=== PATIENT | female | born 1985 | race Caucasian/White ===

== ENCOUNTER 2017-11-09 19:25 | Emergency (ER) | payer OTHER, SELFPAY ==
[2017-11-09] MEDS ORDERED: MORPHINE 4 MG/ML SYR ONE (19:56)
[2017-11-09] MEDS ORDERED: ONDANSETRON 4 MG/2 ML VIAL ONE (19:57)
[2017-11-09] MEDS ORDERED: NA CHLORIDE 0.9% 1,000 ML ONE (19:57)
[2017-11-09 20:06] LABS: Absolute Lymphocytes (CBC) 1.9 K/uL (0.7-4.9); Absolute Monocytes 1.1 K/uL (0.1-1.3); Absolute Neutrophil 12.6 K/uL (1.8-8.0); Basophils % 0.4 % (0-1.3); Eosinophils % 1.4 % (0-4.4); Hematocrit 41.4 % (36.0-45.0); MCH 30.9 pg (27.0-35.0); MCV 91.6 fL (80-100); MPV 8.2 fL (7.6-11.3); Monocytes % 7.1 % (3.3-12.3); RBC Red Blood Cell Count 4.52 M/uL (3.86-4.86)
[2017-11-09 20:25] LABS: ALT/SGPT 15 U/L (12-78); AST/SGOT 11 U/L (15-37); Albumin 3.8 g/dL (3.4-5.0); Alkaline Phosphatase 71 U/L (45-117); BUN Blood Urea Nitrogen 8 mg/dL (7-18); Bicarbonate 27 mmol/L (21-32); Bilirubin Direct 0.1 mg/dL (0-0.2); Bilirubin Total 0.3 mg/dL (0.2-1.0); Glucose Level 93 mg/dL (74-106); Lipase 74 U/L (73-393); Potassium 3.8 mmol/L (3.5-5.1); Protein, Total 7.7 g/dL (6.4-8.2); Sodium Level 138 mmol/L (136-145)
--- NOTE | 2017-11-09 21:02 | ER ---
Nurse's Notes [facility] Name: Shaan Woods Age: 32 yrs Sex: Female : 1985 Arrival Date: 11/09/2017 Time: 19:26 Bed 5 Private MD: Sheldon Najera Diagnosis: Abdominal and pelvic pain Presentation: 11/09 19:35 Presenting complaint: Patient states: lower abd pain X4 days. last BM yesterday. pt ak1 denies N/V/D. Transition of care: patient was not received from another setting of care. Onset of symptoms is unknown. Risk Assessment: Do you want to hurt yourself or someone else? Patient reports no desire to harm self or others. Initial Sepsis Screen: Does the patient meet any 2 criteria?. Care prior to arrival: None. 19:35 Method Of Arrival: Wheelchair ak1 19:35 Acuity: HASEEB 3 ak1 Triage Assessment: 19:37 General: Appears uncomfortable, Behavior is crying. Pain: Complains of pain in right ak1 lower quadrant and left lower quadrant. 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 - Social history:: Smoking status: Patient uses tobacco products, smokes one pack cigarettes per day. - Ebola Screening: : No symptoms or risks identified at this time. Screenin:48 Abuse screen: Denies threats or abuse. Nutritional screening: No deficits noted. ea Tuberculosis screening: No symptoms or risk factors identified. Fall Risk None identified. Assessment: 19:46 General: Appears uncomfortable, Behavior is restless. Pain: Complains of pain in right ea lower quadrant Pain currently is 10 out of 10 on a pain scale. Quality of pain is described as sharp, Pain began Is continuous. Neuro: Level of Consciousness is awake, alert, obeys commands, Oriented to person, place, time, situation. Cardiovascular: Patient's skin is warm and dry. Respiratory: Airway is patent Respiratory effort is even, unlabored, Respiratory pattern is regular, symmetrical. GI: Abdomen is flat, Bowel sounds present X 4 quads. Abdomen is tender to palpation in right lower quadrant Abd is rigid in right lower quadrant Guarding noted in right lower quadrant. : No signs and/or symptoms were reported regarding the genitourinary system. Derm: Skin is dry, Skin is pale, Skin temperature is warm. 20:45 Reassessment: Pt screaming "I don't want to fucking stay, I know what the fuck is wrong ea with me I have ovarian cysts, get this IV out of my fucking arm" provider notified. 20:55 Reassessment: Provider at bedside pt screaming she wants to go home. Pt verbalized the ea understanding of possible adverse effects due to leaving AMA. AMA form signed. Pt IV discontinued, catheter intact, bleeding controlled, pressure dressing applied pt tolerated well. Pt left ED with significant other. Vital Signs: 19:37 BP 141 / 107; Pulse 121; Resp 20; Temp 98.1; Pulse Ox 100% on R/A; Weight 44.45 kg (R); ak1 Height 4 ft. 11 in. (149.86 cm) (R); Pain 8/10; 20:31 BP 115 / 88; Pulse 110; Resp 18; Pulse Ox 98% ; ea 20:47 BP 109 / 79; Pulse 101; Resp 18; Pulse Ox 100% on R/A; mt 19:37 Body Mass Index 19.79 (44.45 kg, 149.86 cm) ak1 ED Course: 19:26 Patient arrived in ED. al2 19:26 Sheldon Najera MD is Private Physician. al2 19:36 Triage completed. ak1 19:37 Arm band placed on Patient placed in an exam room, on a stretcher, Patient notified of ak1 wait time. 19:38 Todd Gentile MD is Attending Physician. tw4 19:46 Catrachita Nation RN is Primary Nurse. ea 19:47 Inserted saline lock: 22 gauge in right antecubital area, using aseptic technique. mt Blood collected. Administered Medications: 19:49 Drug: morphine 4 mg Route: IVP; Site: right antecubital; ea 19:49 Drug: Zofran 4 mg Route: IVP; Site: right antecubital; ea 19:50 Drug: NS 0.9% 1000 ml Route: IV; Rate: 1 bolus; Site: right antecubital; ea Outcome: 21:04 AMA AMA form signed ea 21:05 Patient left the ED. ea Signatures: Gloria Johnston RN RN Elisa Medina mt, Elena, RN RN ea Love, Todd Thakur MD MD tw4 Corrections: (The following items were deleted from the chart) : 20:45 Reassessment: Provider at bedside pt screaming she wants to go home. Pt ea verbalized the understanding of possible adverse effects due to leaving AMA. AMA form signed. Pt IV discontinued, catheter intact, bleeding controlled, pressure dressing applied pt tolerated well. Pt left ED with significant other. ea
--- NOTE | 2017-11-09 21:02 | EDPHYS ---
Physician Documentation [facility] Name: Shaan Woods Age: 32 yrs Sex: Female : 1985 Arrival Date: 11/09/2017 Time: 19:26 Bed 5 Private MD: Sheldon Najera ED Physician Todd Gentile HPI: 11/09 20:50 This 32 yrs old Female presents to ER via Wheelchair with complaints of tw4 Abdominal Pain. 20:50 The patient presents with abdominal pain right lower quadrant. Onset: The tw4 symptoms/episode began/occurred today. The symptoms do not radiate. Associated signs and symptoms: none. The symptoms are described as sharp. Modifying factors: The symptoms are alleviated by nothing, the symptoms are aggravated by movement, pressure. Severity of pain: At its worst the pain was severe in the emergency department the pain. The patient has not experienced similar symptoms in the past. 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 - Social history:: Smoking status: Patient uses tobacco products, smokes one pack cigarettes per day. - Ebola Screening: : No symptoms or risks identified at this time. ROS: 20:50 Constitutional: Negative for fever, chills, and weight loss, Cardiovascular: Negative tw4 for chest pain, palpitations, and edema, Respiratory: Negative for shortness of breath, cough, wheezing, and pleuritic chest pain, MS/Extremity: Negative for injury and deformity, Skin: Negative for injury, rash, and discoloration, Neuro: Negative for headache, weakness, numbness, tingling, and seizure. 20:50 Abdomen/GI: Positive for Exam: 21:02 Chest/axilla: Normal chest wall appearance and motion. Nontender with no deformity. tw4 No lesions are appreciated. Cardiovascular: Regular rate and rhythm with a normal S1 and S2. No gallops, murmurs, or rubs. Normal PMI, no JVD. No pulse deficits. Respiratory: Lungs have equal breath sounds bilaterally, clear to auscultation and percussion. No rales, rhonchi or wheezes noted. No increased work of breathing, no retractions or nasal flaring. 21:02 MS/ Extremity: Pulses equal, no cyanosis. Neurovascular intact. Full, normal range of motion. Neuro: Awake and alert, GCS 15, oriented to person, place, time, and situation. Cranial nerves II-XII grossly intact. Motor strength 5/5 in all extremities. Sensory grossly intact. Cerebellar exam normal. Normal gait. 21:02 Constitutional: The patient appears in obvious distress, moderately distressed. 21:02 Abdomen/GI: Inspection: abdomen appears normal, Bowel sounds: normal, Palpation: moderate abdominal tenderness, in the right lower quadrant. Vital Signs: 19:37 BP 141 / 107; Pulse 121; Resp 20; Temp 98.1; Pulse Ox 100% on R/A; Weight 44.45 kg (R); ak1 Height 4 ft. 11 in. (149.86 cm) (R); Pain 8/10; 20:31 BP 115 / 88; Pulse 110; Resp 18; Pulse Ox 98% ; ea 20:47 BP 109 / 79; Pulse 101; Resp 18; Pulse Ox 100% on R/A; mt 19:37 Body Mass Index 19.79 (44.45 kg, 149.86 cm) ak1 MDM: 19:39 Patient medically screened. tw4 21:02 Differential diagnosis: appendicitis, Ovarian Torsion, Tubal Ovarian Abcess, tw4 Ureterolithiasis, urinary tract infection. Data reviewed: vital signs, nurses notes. Data interpreted: Pulse oximetry: Interpretation: normal. Counseling: I had a detailed discussion with the patient and/or guardian regarding: the historical points, exam findings, and any diagnostic results supporting the discharge/admit diagnosis, lab results. Medication response: morphine relieved the patient's pain. Symptoms have resolved. Response to treatment: the patient's symptoms have markedly improved after treatment. ED course: Pt received Morphine for pain and after only waited 40 min in the ED stated "take this IV out, you all aren't doing anything for me". Pt in my opinion displaying drug seeking behavior. Pt offered no other rationale for leaving. Risks of leaving explained to patient, AMA form signed. 11/09 19:41 Order name: Basic Metabolic Panel tw4 11/09 19:41 Order name: CBC with Diff tw4 11/09 19:41 Order name: Creatinine for Radiology tw4 11/09 19:41 Order name: Hepatic Function tw4 11/09 19:41 Order name: Lipase tw4 11/09 19:41 Order name: Basic Metabolic Panel EDMS 11/09 19:41 Order name: CBC with Automated Diff EDMS 11/09 19:41 Order name: Liver (Hepatic) Function EDMS 11/09 19:42 Order name: Lipase EDMS 11/09 19:41 Order name: IV Saline Lock; Complete Time: 19:46 tw4 11/09 19:41 Order name: Labs collected and sent; Complete Time: 19:46 tw4 Administered Medications: 19:49 Drug: morphine 4 mg Route: IVP; Site: right antecubital; ea 19:49 Drug: Zofran 4 mg Route: IVP; Site: right antecubital; ea 19:50 Drug: NS 0.9% 1000 ml Route: IV; Rate: 1 bolus; Site: right antecubital; ea Disposition: 11/09/17 21:01 Patient has left against medical advice. Impression: Abdominal and pelvic pain. - Patients states they are going to Home. - Condition is Stable. - Discharge Instructions: Abdominal Pain, Adult. Follow up: Private Physician; When: Upon discharge from the Emergency Department; Reason: If symptoms return. Follow up: Emergency Department; Reason: If symptoms return. - Problem is an ongoing problem. - Symptoms are unchanged. Signatures: Dispatcher [employer] [facility] Gloria Johnston RN RN ak1 Catrachita Nation RN RN ea Wadley, Terrence, MD MD tw4 Corrections: (The following items were deleted from the chart) 21:05 21:01 11/09/2017 21:01 Patients has left against medical advice. Impression: Abdominal ea and pelvic pain. Patient states they are going to Home. Condition is Stable. Follow up: Private Physician; When: Upon discharge from the Emergency Department; Reason: If symptoms return. Follow up: Emergency Department; Reason: If symptoms return. Problem is an ongoing problem. Symptoms are unchanged. tw4
[2017-11-09 21:09] VITALS: TEMP 98.1
[2017-11-09 21:12] VITALS: BP 109/79; O2SAT 100
== END 2017-11-09 21:05 | disposition left against medical advice (07) ==
LOC: ER 19:25
DX: R10.2 Pelvic and perineal pain (principal); F17.210 Nicotine dependence, cigarettes, uncomplicated; Z88.0 Allergy status to penicillin; Z88.1 Allergy status to other antibiotic agents; Z88.5 Allergy status to narcotic agent
CPT/HCPCS: 36415; 80048; 80076; 83690; 85025; 96374; 96375; 99283; J2405; J7030

== ENCOUNTER 2020-08-23 16:33 | Emergency (ER) | payer SELFPAY ==
--- OUTSIDE RECORDS SUMMARY | 2020-08-23 16:36 | XMS REPORT | Continuity of Care Document ---
:1985 Author Organization [facility] t Address [address] [place] [address] Dr. Parham [address] [place] [id number] Care Team Providers Name Role Phone Unavailable Unavailable Unavailable Problems This patient has no known problems. Allergies, Adverse Reactions, Alerts This patient has no known allergies or adverse reactions. Medications This patient has no known medications. Procedures This patient has no known procedures. Results This patient has no known results.
--- NOTE | 2020-08-23 18:27 | EDPHYS ---
Physician Documentation [facility] Name: Shaan Woods Age: 34 yrs Sex: Female : 1985 Arrival Date: 08/23/2020 Time: 16:35 Bed 24 Private MD: ED Physician Nando Miranda HPI: 08/23 18:43 This 34 yrs old Female presents to ER via Ambulatory with complaints of kb Rectal Pain. 18:43 The patient presents to the emergency department with pain in the rectal area, that is kb moderate. Onset: The symptoms/episode began/occurred 4 day(s) ago. Context: the patient "feels like another fistula". Modifying factors: The symptoms are alleviated by nothing, The symptoms are aggravated by nothing. Associate signs and symptoms: The patient has no apparent associated signs or symptoms. The patient has not experienced similar symptoms in the past. The patient has not recently seen a physician. Historical: - Allergies: 16:57 PENICILLINS; ll1 16:57 hydromorphone HCl; ll1 16:57 Bactrim; ll1 - PMHx: 16:57 Anxiety; ll1 - PSHx: 16:57 fistula repair; ll1 - Immunization history:: Client reports having NOT received the Covid vaccine. Flu vaccine is not up to date. - Social history:: Smoking status: Patient reports the use of cigarette tobacco products, smokes one-half pack cigarettes per day, Reported history of juuling and/or vaping. ROS: 18:42 Constitutional: Negative for fever, chills, and weight loss. kb 18:42 Abdomen/GI: Positive for rectal pain. 18:42 All other systems are negative. Exam: 18:42 Constitutional: This is a well developed, well nourished patient who is awake, alert, kb and in no acute distress. Head/Face: Normocephalic, atraumatic. ENT: Moist Mucous membranes Respiratory: Respirations even and unlabored. No increased work of breathing, no retractions or nasal flaring. Skin: Warm, dry with normal turgor. Normal color. MS/ Extremity: Pulses equal, no cyanosis. Neurovascular intact. Full, normal range of motion. Neuro: Awake and alert, GCS 15, oriented to person, place, time, and situation. Moves all extremities. Normal gait. Psych: Awake, alert, with orientation to person, place and time. Behavior, mood, and affect are within normal limits. 18:42 Abdomen/GI: Rectal exam: tenderness, that is moderate, the spouse/significant other acts as a education dean. Vital Signs: 16:56 BP 119 / 84; Pulse 97; Resp 17; Temp 98.1; Pulse Ox 100% ; Height 4 ft. 11 in. (149.86 ll1 cm); Pain 5/10; MDM: 18:05 Patient medically screened. kb 18:23 Data reviewed: vital signs, nurses notes. Data interpreted: Pulse oximetry: on room air kb is 100 %. Interpretation: normal. 18:23 ED course: PT decided she didn't want to stay for the workup. . kb 08/23 18:18 Order name: IV Saline Lock kb 08/23 18:18 Order name: Labs collected and sent kb Administered Medications: No medications were administered Disposition: 08/24 06:58 Co-signature as Attending Physician, Nando Miranda MD. rn Disposition Summary: 08/23/20 18:26 Left Against Medical Advice Location: Home kb Problem: new kb Symptoms: are unchanged kb Condition: Stable kb Diagnosis - Rectal pain kb Followup: kb - With: Emergency Department - When: As needed - Reason: Worsening of condition Followup: kb - With: Private Physician - When: 2 - 3 days - Reason: Recheck today's complaints, Continuance of care, Re-evaluation by your physician Signatures: Dispatcher [employer] Aislinn Chakraborty, DIRECTOR PRISON-C DIRECTOR PRISON-Ckb Nando Miranda MD MD rn Lewis, Lynsay RN RN ll1
--- NOTE | 2020-08-23 18:27 | ER ---
Nurse's Notes [facility] Name: Shaan Woods Age: 34 yrs Sex: Female : 1985 Arrival Date: 08/23/2020 Time: 16:35 Bed 24 Private MD: Diagnosis: Rectal pain Presentation: 08/23 16:56 Chief complaint: Patient states: Severe rectal pain for 4 days. History of fistula's, ll1 states it feels the same. No trauma or falls. Denies blood in stools. No fever. Coronavirus screen: Client denies travel out of the [place] in the last 14 days. At this time, the client does not indicate any symptoms associated with coronavirus-19. Ebola Screen: Patient denies travel to an Ebola-affected area in the 21 days before illness onset. Initial Sepsis Screen: Does the patient meet any 2 criteria? HR > 90 bpm. No. Patient's initial sepsis screen is negative. Does the patient have a suspected source of infection? Yes: Other: RECTAL PAIN/R/O FISTULA. Risk Assessment: Do you want to hurt yourself or someone else? Patient reports no desire to harm self or others. Onset of symptoms was August 19, 2020. 16:56 Method Of Arrival: Ambulatory ll1 16:56 Acuity: HASEEB 3 ll1 Historical: - Allergies: 16:57 PENICILLINS; ll1 16:57 hydromorphone HCl; ll1 16:57 Bactrim; ll1 - PMHx: 16:57 Anxiety; ll1 - PSHx: 16:57 fistula repair; ll1 - Immunization history:: Client reports having NOT received the Covid vaccine. Flu vaccine is not up to date. - Social history:: Smoking status: Patient reports the use of cigarette tobacco products, smokes one-half pack cigarettes per day, Reported history of juuling and/or vaping. Screenin:17 Abuse screen: Denies threats or abuse. Denies injuries from another. Nutritional zb screening: No deficits noted. Tuberculosis screening: No symptoms or risk factors identified. Fall Risk None identified. Assessment: 18:18 Reassessment: ECP at bedside discussing care with patient. zb 18:26 Reassessment: assessment note completed. patient states she wanted to leave AMA. Form zb signed. Vital Signs: 16:56 BP 119 / 84; Pulse 97; Resp 17; Temp 98.1; Pulse Ox 100% ; Height 4 ft. 11 in. (149.86 ll1 cm); Pain 5/10; ED Course: 16:35 Patient arrived in ED. mr 16:57 Triage completed. ll1 16:58 Arm band placed on. ll1 18:02 Jordyn August RN is Primary Nurse. zb 18:03 Aislinn Messina FNP-C is [facility]. kb 18:03 Nando Miranda MD is Attending Physician. kb Administered Medications: No medications were administered Outcome: 18:27 AMA AMA form signed zb 18:27 Condition: stable 18:27 Patient left the ED. zb Signatures: Aislinn Messina FNP-C FNP-Ckb RiveraMaggie mr RouseJamaal, RN RN 1 Jordyn August RN RN zb
[2020-08-23 18:34] VITALS: BP 119/84; TEMP 98.1; O2SAT 100
== END 2020-08-23 18:27 | disposition left against medical advice (07) ==
LOC: ER 16:33
DX: K62.89 Other specified diseases of anus and rectum (principal); F17.210 Nicotine dependence, cigarettes, uncomplicated; Z88.0 Allergy status to penicillin; Z88.1 Allergy status to other antibiotic agents; Z88.5 Allergy status to narcotic agent
CPT/HCPCS: 99281

== ENCOUNTER 2020-08-24 17:52 | Emergency (ER) | payer SELFPAY ==
--- OUTSIDE RECORDS SUMMARY | 2020-08-24 17:54 | XMS REPORT | Continuity of Care Document ---
:1985 Author Organization [facility] t Address [address] [place] [address] Dr. Parham [address] [place] [id number] Care Team Providers Name Role Phone Unavailable Unavailable Unavailable Problems This patient has no known problems. Allergies, Adverse Reactions, Alerts This patient has no known allergies or adverse reactions. Medications This patient has no known medications. Procedures This patient has no known procedures. Results This patient has no known results.
[2020-08-24 18:38] LABS: Absolute Lymphocytes (CBC) 2.3 K/uL (0.7-4.9); Basophils % 0.7 % (0-1.3); Hematocrit 37.7 % (36.0-45.0); Lymphocytes % 23.8 % (15.3-44.8); MPV 8.1 fL (7.6-11.3)
[2020-08-24] MEDS ORDERED: MEPERIDINE HCL 25 MG/ML SYR ONE ×2 (18:40→20:07)
[2020-08-24] MEDS ORDERED: ONDANSETRON 4 MG/2 ML VIAL ONE (18:40)
[2020-08-24 18:42] LABS: Urine Blood 3+ (Negative); Urine Glucose Negative (Negative); Urine Protein Negative (Negative)
[2020-08-24 18:54] LABS: ALT/SGPT 20 U/L (12-78); AST/SGOT 16 U/L (15-37); Albumin 3.7 g/dL (3.4-5.0); Alkaline Phosphatase 71 U/L (45-117); BUN Blood Urea Nitrogen 11 mg/dL (7-18); Bicarbonate 27 mmol/L (21-32); Bilirubin Direct < 0.1 mg/dL (0-0.2); Bilirubin Total 0.2 mg/dL (0.2-1.0); Glucose Level 86 mg/dL (74-106); Lipase 78 U/L (73-393); Potassium 3.7 mmol/L (3.5-5.1); Protein, Total 7.1 g/dL (6.4-8.2); Sodium Level 142 mmol/L (136-145)
--- NOTE | 2020-08-24 19:09 | RAD REPORT ---
EXAM DESCRIPTION: CT - Stone Protocol - 08/24/2020 6:46 pm CLINICAL HISTORY: Flank pain. urinary frequency;Abd pain COMPARISON: Stone Protocol dated 12/16/2015 TECHNIQUE: Axial images were obtained without oral or IV contrast. Lack of contrast limits solid org an and vascular assessment. The [id number] spans the entirety of the system partially obscuring uppermost abdomen and lung bases. Coronal reformatted images were obtained and reviewed. All CT scans are performed using dose optimization technique as appropriate and may include automated exposure control or mA/KV adjustment according to patient size. FINDINGS: The lower lung garcia are clear. Imaged portions of the liver and spleen show no suspicious findings on non-contrast imaging. The panc reas and adrenal glands are normal. No pathologic lymphadenopathy in the abdomen or pelvis. 2 mm stone is present left UVJ without significant hydronephrosis. Additional bilateral punctate jones ceal calculi in both kidneys. No bowel obstruction, free air, free fluid or abscess. Normal appendix noted. No significant bony abnormality. IMPRESSION: 2 mm stone left UVJ without significant hydronephrosis. Punctate bilateral caliceal nephrolithiasis.
[2020-08-24 19:27] LABS: Urine Bacteria <20 /HPF (<20); Urine RBC >50 /HPF (NONE SEEN)
--- NOTE | 2020-08-24 19:42 | EDPHYS ---
Physician Documentation [facility] Name: Shaan Woods Age: 34 yrs Sex: Female : 1985 Arrival Date: 08/24/2020 Time: 17:52 Bed 2 Private MD: ED Physician Cali Roger HPI: 08/24 18:26 This 34 yrs old Female presents to ER via Ambulatory with complaints of Pain rn With Urination, Blood In Urine. 18:26 The patient presents with abdominal pain in the lower abdomen. Onset: The rn symptoms/episode began/occurred last night. The symptoms do not radiate. Associated signs and symptoms: Pertinent positives: dysuria, hematuria, Pertinent negatives: blood in stools, vaginal discharge, vomiting blood. The symptoms are described as sharp, stabbing. Modifying factors: The symptoms are alleviated by nothing, the symptoms are aggravated by nothing. Severity of pain: At its worst the pain was moderate in the emergency department the pain is unchanged. The patient has not experienced similar symptoms in the past. The patient has been recently seen at the [facility] Emergency Department. Seen here yesterday for issues with chronic rectal fistula and rectal pain, left after being seen for unclear reason, back today for another reason, states having lower abd pain, dysuria, increased frequency, and feels similar to previous kidney stones in past. No fever. No trauma. . Historical: - Allergies: 18:01 Bactrim; ll1 18:01 hydromorphone HCl; ll1 18:01 PENICILLINS; ll1 - PMHx: 18:01 Anxiety; ll1 - PSHx: 18:01 fistula repair; ll1 - Immunization history:: Flu vaccine is not up to date. - Social history:: Smoking status: Patient reports the use of cigarette tobacco products, smokes one pack cigarettes per day. - Family history:: not pertinent. - Hospitalizations: : No recent hospitalization is reported. ROS: 18:26 Constitutional: Negative for fever, chills, and weight loss, Eyes: Negative for injury, rn pain, redness, and discharge, ENT: Negative for injury, pain, and discharge, Neck: Negative for injury, pain, and swelling, Cardiovascular: Negative for chest pain, palpitations, and edema, Respiratory: Negative for shortness of breath, cough, wheezing, and pleuritic chest pain, Abdomen/GI: Negative for vomiting, diarrhea, and constipation, Back: Negative for injury and pain, : Negative for injury, bleeding, discharge, and swelling, MS/Extremity: Negative for injury and deformity, Skin: Negative for injury, rash, and discoloration, Neuro: Negative for headache, weakness, numbness, tingling, and seizure. Exam: 18:26 Constitutional: This is a well developed, well nourished patient who is awake, alert, rn appears uncomfortable Head/Face: Normocephalic, atraumatic. Eyes: Periorbital areas with no swelling, redness, or edema. ENT: Dry MM Cardiovascular: Tachycardic, regular. No pulse deficits. Respiratory: No increased work of breathing, no retractions or nasal flaring. Abdomen/GI: soft, + suprapubic tenderness, no rebound Back: No spinal tenderness. No costovertebral tenderness. Full range of motion. Skin: Warm, dry MS/ Extremity: Pulses equal, no cyanosis. Neuro: Awake and alert, GCS 15 Vital Signs: 18:00 BP 149 / 78; Pulse 129; Resp 18; Temp 97.9; Pulse Ox 98% ; Weight 45.36 kg; Height 4 ll1 ft. 11 in. (149.86 cm); Pain 10/10; 19:35 BP 101 / 61; Pulse 108; Resp 18; Pulse Ox 99% ; ea 18:00 Body Mass Index 20.20 (45.36 kg, 149.86 cm) ll1 MDM: 18:11 Patient medically screened. rn 19:36 Data reviewed: vital signs, nurses notes, lab test result(s), radiologic studies, CT pkl scan. ED course: Discussed lab and CT scan result with patient. Advised to follow up with Urologist in 2 to 3 days. Patient understood instructions. 08/24 18:16 Order name: Basic Metabolic Panel; Complete Time: 18:54 rn 08/24 18:16 Order name: CBC with Diff; Complete Time: 19:06 rn 08/24 18:16 Order name: Hepatic Function; Complete Time: 18:54 rn 08/24 18:16 Order name: Lipase; Complete Time: 18:54 rn 08/24 18:16 Order name: Urine Microscopic Only; Complete Time: 19:34 rn 08/24 18:42 Order name: Urine Dipstick-Ancillary; Complete Time: 18:46 EDWA 08/24 18:16 Order name: IV Saline Lock; Complete Time: 18:42 rn 08/24 18:16 Order name: Labs collected and sent; Complete Time: 18:42 rn 08/24 18:16 Order name: CT Stone Protocol; Complete Time: 19:34 rn 08/24 19:27 Order name: Urine Culture EDWA 08/24 18:16 Order name: Urine Dipstick-Ancillary (obtain specimen); Complete Time: 18:42 rn 08/24 18:16 Order name: Urine Test (obtain specimen); Complete Time: 18:42 rn 08/24 18:16 Order name: Bladder Scanner; Complete Time: 18:42 rn Administered Medications: 18:25 Drug: Zofran (Ondansetron) 4 mg Route: IVP; Site: right wrist; sv 18:55 Follow up: Response: No adverse reaction sv 18:27 Drug: Demerol (meperidine) 25 mg {Note: rass3.} Route: IVP; Site: right wrist; sv 18:55 Follow up: Response: No adverse reaction; RASS: Agitated (+2) sv 19:48 Drug: Cipro (ciprofloxacin) 500 mg Route: PO; ea 19:53 Follow up: Response: Medication administered at discharge. ea 19:48 Drug: Demerol (meperidine) 25 mg Route: IVP; Site: right wrist; ea 19:53 Follow up: Response: Medication administered at discharge. ea Disposition Summary: 08/24/20 19:40 Discharge Ordered Location: Home pkl Problem: new pkl Symptoms: are unchanged pkl Condition: Stable pkl Diagnosis - 2 mm stone left UVJ with no significant hydronephrosis. Urinary tract pkl infection Followup: pkl - With: Abimael Vargas MD - When: 2 - 3 days - Reason: Re-evaluation by your physician Discharge Instructions: - Discharge Summary Sheet pkl Forms: - Medication Reconciliation Form pkl - Thank You Letter pkl - Antibiotic Education pkl - Prescription Opioid Use pkl Prescriptions: - Ultram 50 mg Oral Tablet - take 1 tablet by ORAL route every 6 hours As needed; 12 tablet; Refills: 0, pkl Product Selection Permitted - Cipro 500 mg Oral Tablet - take 1 tablet by ORAL route every 12 hours for 7 days; 14 tablet; Refills: 0, pkl Product Selection Permitted Signatures: Dispatcher [employer] Kiara Ruiz, RN Cali Shannon MD MD pkNando López MD MD rn Antunez, Elena RN Jamaal Rivas ea, RN RN ll1
--- NOTE | 2020-08-24 19:42 | ER ---
Nurse's Notes [facility] Name: Shaan Woods Age: 34 yrs Sex: Female : 1985 Arrival Date: 08/24/2020 Time: 17:52 Bed 2 Private MD: Diagnosis: 2 mm stone left UVJ with no significant hydronephrosis. Urinary tract infection Presentation: 08/24 18:00 Chief complaint: Patient states: Severe pelvic pain and unable to urinate well since ll1 last night. Just dribbling and dysuria. Was here yesterday for rectal pain, but left without being seen (wait too long). States her rectum still hurts. No fever. Coronavirus screen: Client denies travel out of the [place] in the last 14 days. At this time, the client does not indicate any symptoms associated with coronavirus-19. Ebola Screen: Patient denies travel to an Ebola-affected area in the 21 days before illness onset. Initial Sepsis Screen: Does the patient meet any 2 criteria? HR > 90 bpm. No. Patient's initial sepsis screen is negative. Does the patient have a suspected source of infection? Yes: Dysuria/Frequency/Urgency/UTI. Risk Assessment: Do you want to hurt yourself or someone else? Patient reports no desire to harm self or others. Onset of symptoms was August 23, 2020. 18:00 Method Of Arrival: Ambulatory ll1 18:00 Acuity: HASEEB 2 ll1 Historical: - Allergies: 18:01 Bactrim; ll1 18:01 hydromorphone HCl; ll1 18:01 PENICILLINS; ll1 - PMHx: 18:01 Anxiety; ll1 - PSHx: 18:01 fistula repair; ll1 - Immunization history:: Flu vaccine is not up to date. - Social history:: Smoking status: Patient reports the use of cigarette tobacco products, smokes one pack cigarettes per day. - Family history:: not pertinent. - Hospitalizations: : No recent hospitalization is reported. Screenin:07 Abuse screen: Denies threats or abuse. Denies injuries from another. Nutritional sv screening: No deficits noted. Tuberculosis screening: No symptoms or risk factors identified. Fall Risk None identified. Assessment: 18:10 General: Appears in no apparent distress. uncomfortable, slender, Behavior is sv cooperative, restless. Pain: Complains of pain in suprapubic area and left lower quadrant Pain currently is 10 out of 10 on a pain scale. Quality of pain is described as sharp, Pain began 1 day ago. Is continuous, Noted to be grimacing, restless. Neuro: Level of Consciousness is awake, alert, obeys commands, Oriented to person, place, time, situation, Gait is steady. Respiratory: Respiratory effort is even, unlabored, Respiratory pattern is regular, symmetrical. : Reports urgency, since last night. Derm: Skin is pink, warm \T\ dry. 19:26 Reassessment: Patient and/or family updated on plan of care and expected duration. Pain ea level reassessed. Patient is alert, oriented x 3, equal unlabored respirations, skin warm/dry/pink. 19:52 Reassessment: Patient and/or family updated on plan of care and expected duration. Pain ea level reassessed. Patient is alert, oriented x 3, equal unlabored respirations, skin warm/dry/pink. Discharge instruction given to patient verbalized the understanding of instruction. Pt left ED ambulatory accompanied by family pt tolerating well. Vital Signs: 18:00 BP 149 / 78; Pulse 129; Resp 18; Temp 97.9; Pulse Ox 98% ; Weight 45.36 kg; Height 4 ll1 ft. 11 in. (149.86 cm); Pain 10/10; 19:35 BP 101 / 61; Pulse 108; Resp 18; Pulse Ox 99% ; ea 18:00 Body Mass Index 20.20 (45.36 kg, 149.86 cm) ll1 ED Course: 17:52 Patient arrived in ED. ds1 18:01 Triage completed. ll1 18:01 Arm band placed on. ll1 18:05 Kiara Zambrano, [place] is Primary Nurse. sv 18:07 Patient has correct armband on for positive identification. Bed in low position. Call sv light in reach. Door closed. Head of bed elevated. 18:11 Nando Miranda MD is Attending Physician. rn 18:15 Missed attempt(s): 20 gauge in right antecubital area. Bleeding controlled, band aid sv applied, catheter tip intact. 18:20 Inserted saline lock: 22 gauge in right wrist, using aseptic technique. ,using aseptic sv technique. diffusics Blood collected. 18:25 Bladder scan completed. 28 mls. sv 18:43 Urine collected: clean catch specimen. sv 18:45 CT Stone Protocol In Process Unspecified. EDMS 19:03 Attending Physician role handed off by Nando Miranda MD pkl 19:03 Cali Roger MD is Attending Physician. pkl 19:03 Primary Nurse role handed off by Kiara Zambrano RN sv 19:08 Report given to Catrachita TOLEDO and Galo TOLEDO. sv 19:15 Catrachita Nation RN is Primary Nurse. ea 19:38 Abimael Vargas MD is Referral Physician. pkl Administered Medications: 18:25 Drug: Zofran (Ondansetron) 4 mg Route: IVP; Site: right wrist; sv 18:55 Follow up: Response: No adverse reaction sv 18:27 Drug: Demerol (meperidine) 25 mg {Note: rass3.} Route: IVP; Site: right wrist; sv 18:55 Follow up: Response: No adverse reaction; RASS: Agitated (+2) sv 19:48 Drug: Cipro (ciprofloxacin) 500 mg Route: PO; ea 19:53 Follow up: Response: Medication administered at discharge. ea 19:48 Drug: Demerol (meperidine) 25 mg Route: IVP; Site: right wrist; ea 19:53 Follow up: Response: Medication administered at discharge. ea Outcome: 19:40 Discharge ordered by . pkl 20:01 Patient left the ED. ea Signatures: Dispatcher [employer] EDMS Kiara Zambrano RN RN sv Lam, Pin, MD MD pk Yanique Helms ds1 Nando Miranda MD MD rn Antunez, Elena, RN RN ea Lewis, Lynsay, RN RN ll1 Corrections: (The following items were deleted from the chart) 18:04 18:00 Chief complaint: Patient states: Severe pelvic pain and unable to urinate well ll1 since last night. Was here yesterday for similar problems. No fever. ll1
[2020-08-24] MEDS ORDERED: CIPROFLOXACIN HCL 500 MG TAB ONE (20:07)
[2020-08-24 20:09] VITALS: TEMP 97.9
[2020-08-24 20:10] VITALS: BP 101/61; O2SAT 99
== END 2020-08-24 20:01 | disposition home or self-care (01) ==
LOC: ER 17:52
DX: N20.9 Urinary calculus, unspecified (principal); N39.0 Urinary tract infection, site not specified; R31.9 Hematuria, unspecified; F17.210 Nicotine dependence, cigarettes, uncomplicated; Z88.0 Allergy status to penicillin; Z88.1 Allergy status to other antibiotic agents; Z88.5 Allergy status to narcotic agent
CPT/HCPCS: 36415; 74176; 76377; 80048; 80076; 81003; 81015; 83690; 85025; 87086; 87088; 96374; 96375; 99284; J2175; J2405

== ENCOUNTER 2020-09-02 15:43 | Emergency (ER) | payer SELFPAY ==
--- OUTSIDE RECORDS SUMMARY | 2020-09-02 15:46 | XMS REPORT | Continuity of Care Document ---
:1985 Author Organization [facility] t Address [address] [place] [address] Dr. Parham [address] [place] [id number] Care Team Providers Name Role Phone Unavailable Unavailable Unavailable Problems This patient has no known problems. Allergies, Adverse Reactions, Alerts This patient has no known allergies or adverse reactions. Medications This patient has no known medications. Procedures This patient has no known procedures. Results This patient has no known results.
[2020-09-02 16:25] LABS: Urine Blood 3+ (Negative); Urine Glucose Negative (Negative); Urine Protein Trace (Negative); Urine Specific Gravity >=1.030 (1.005-1.030)
[2020-09-02 16:34] LABS: Urine Specific Gravity/Preg >1.030 (1.005-1.030)
[2020-09-02] MEDS ORDERED: FENTANYL CITR 100 MCG/2 ML ONE (18:43)
[2020-09-02] MEDS ORDERED: NA CHLORIDE 0.9% 1,000 ML ONE (18:43)
[2020-09-02] MEDS ORDERED: ONDANSETRON 4 MG/2 ML VIAL ONE (18:43)
--- NOTE | 2020-09-02 19:01 | RAD REPORT ---
EXAM DESCRIPTION: CT - Stone Protocol - 09/02/2020 6:49 pm CLINICAL HISTORY: Flank pain. right sided abdominal pain COMPARISON: Stone Protocol dated 08/24/2020 TECHNIQUE: Axial images were obtained without oral or IV contrast. Lack of contrast limits solid org an and vascular assessment. The [id number] spans the entirety of the system partially obscuring uppermost abdomen and lung bases. Coronal reformatted images were obtained and reviewed. All CT scans are performed using dose optimization technique as appropriate and may include automated exposure control or mA/KV adjustment according to patient size. FINDINGS: The lower lung garcia are clear. Imaged portions of the liver and spleen show no suspicious findings on non-contrast imaging. The panc reas and adrenal glands are normal. No pathologic lymphadenopathy in the abdomen or pelvis. 3 mm stone is present of the right UVJ resulting in mild right hydronephrosis and hydroureter. Additi onal stones are present in the calices of both kidneys, the largest on the right measuring 3 mm and t he largest on the left inferiorly measuring 4 mm. No bowel obstruction, free air, free fluid or abscess. Normal appendix noted. No significant bony abnormality. IMPRESSION: 3 mm stone is present at the right UVJ resulting in mild right hydronephrosis. Additional bilateral nephrolithiasis is also noted.
[2020-09-02 19:08] LABS: Absolute Lymphocytes (CBC) 2.1 K/uL (0.7-4.9); Basophils % 0.5 % (0-1.3); Hematocrit 37.2 % (36.0-45.0); Lymphocytes % 16.6 % (15.3-44.8); MPV 7.9 fL (7.6-11.3); RBC Red Blood Cell Count 4.15 M/uL (3.86-4.86)
[2020-09-02 19:18] LABS: ALT/SGPT 17 U/L (12-78); AST/SGOT 12 U/L (15-37); Albumin 3.9 g/dL (3.4-5.0); Alkaline Phosphatase 54 U/L (45-117); BUN Blood Urea Nitrogen 11 mg/dL (7-18); Bicarbonate 23 mmol/L (21-32); Bilirubin Direct 0.2 mg/dL (0-0.2); Bilirubin Total 0.6 mg/dL (0.2-1.0); Glucose Level 87 mg/dL (74-106); Lipase 63 U/L (73-393); Sodium Level 141 mmol/L (136-145)
[2020-09-02] MEDS ORDERED: KETOROLAC 30 MG/ML INJ ONE (19:42)
--- NOTE | 2020-09-02 20:52 | ER ---
Nurse's Notes [facility] Name: Shaan Woods Age: 34 yrs Sex: Female : 1985 Arrival Date: 09/02/2020 Time: 15:44 Bed 4 Private MD: Diagnosis: Calculus of ureter Presentation: 09/02 16:03 Chief complaint: Patient states: Abdominal pain and difficulty urinating starting 09/01. kg Vomiting starting 09/02. Pt stated, "It feels like a kidney stone, I've had them before.". Coronavirus screen: Client denies travel out of the [place] in the last 14 days. At this time, unable to obtain information related to travel outside the [place] At this time, the client does not indicate any symptoms associated with coronavirus-19. Ebola Screen: Patient negative for fever greater than or equal to 101.5 degrees Fahrenheit, and additional compatible Ebola Virus Disease symptoms Patient denies exposure to infectious person. Patient denies travel to an Ebola-affected area in the 21 days before illness onset. Initial Sepsis Screen: Does the patient meet any 2 criteria? No. Patient's initial sepsis screen is negative. Does the patient have a suspected source of infection? No. Patient's initial sepsis screen is negative. Risk Assessment: Do you want to hurt yourself or someone else? Patient reports no desire to harm self or others. Onset of symptoms was September 01, 2020. 16:03 Method Of Arrival: Ambulatory kg 16:03 Acuity: HASEEB 3 kg Triage Assessment: 16:06 General: Appears uncomfortable, Behavior is calm, cooperative, appropriate for age, kg restless. Pain: Complains of pain in right lower quadrant Pain radiates to Right flank, right back Pain currently is 9 out of 10 on a pain scale. at worst was 9 out of 10 on a pain scale. level that patient reports is acceptable is 5 out of 10 on a pain scale. Quality of pain is described as throbbing. GI: Reports nausea, vomiting. : Reports inability to void, since 09/01. 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 - Social history:: Smoking status: Patient reports the use of cigarette tobacco products, smokes one pack cigarettes per day. Screenin:10 Abuse screen: Denies threats or abuse. Denies injuries from another. Nutritional kg screening: No deficits noted. Tuberculosis screening: No symptoms or risk factors identified. Fall Risk None identified. Assessment: 18:30 General: Appears in no apparent distress. uncomfortable, slender, Behavior is sv cooperative, appropriate for age, restless. Pain: Complains of pain in right lower quadrant Pain currently is 9 out of 10 on a pain scale. Quality of pain is described as sharp, Pain began 1 day ago. Is continuous. Neuro: Level of Consciousness is awake, alert, obeys commands, Oriented to person, place, time, situation, Gait is steady, Speech is normal. Cardiovascular: Patient's skin is warm and dry. Respiratory: Airway is patent Respiratory effort is even, unlabored, Respiratory pattern is regular, symmetrical. GI: Reports vomiting, since 09/02/20. : Reports dysuria since yesterday. Derm: Skin is pink, warm \\T\\ dry. Musculoskeletal: Range of motion: intact in all extremities. 19:35 General: Appears in no apparent distress. Behavior is appropriate for age. Pain: ea Complains of pain in right lower quadrant. Neuro: Level of Consciousness is awake, alert, obeys commands, Oriented to person, place, time, situation. Cardiovascular: Patient's skin is warm and dry. Respiratory: Airway is patent Respiratory effort is even, unlabored, Respiratory pattern is regular, symmetrical. Derm: Skin is pink, warm \\T\\ dry. 20:48 Reassessment: Patient and/or family updated on plan of care and expected duration. Pain ea level reassessed. Patient is alert, oriented x 3, equal unlabored respirations, skin warm/dry/pink. 21:03 Reassessment: Patient and/or family updated on plan of care and expected duration. Pain ea level reassessed. Patient is alert, oriented x 3, equal unlabored respirations, skin warm/dry/pink. Discharge instruction given to patient verbalized the understanding of instruction. Pt left ED ambulatory accompanied by family. Vital Signs: 16:03 BP 98 / 78; Pulse 78; Resp 17; Temp 98.0(O); Pulse Ox 99% on R/A; Weight 48.4 kg; kg Height 4 ft. 11 in. (149.86 cm); Pain 9/10; 18:59 BP 128 / 63; Pulse 55; Resp 20; Pulse Ox 100% on R/A; sv 20:48 BP 99 / 60; Pulse 77; Resp 18; Pulse Ox 98% ; ea 16:03 Body Mass Index 21.55 (48.40 kg, 149.86 cm) kg ED Course: 15:44 Patient arrived in ED. as 16:06 Triage completed. kg 18:10 Christian Hyde PA is PHCP. jmm 18:10 Nando Miranda MD is Attending Physician. jmm 18:18 Kiara Zambrano RN is Primary Nurse. sv 18:30 Initial lab(s) drawn, by me, sent to lab. Missed attempt(s): 22 gauge in right wrist. sv Bleeding controlled, band aid applied, catheter tip intact. 18:30 Patient has correct armband on for positive identification. Bed in low position. Call sv light in reach. Side rails up X 1. Pulse ox on. NIBP on. Door closed. Head of bed elevated. 18:30 Arm band placed on. sv 18:43 Inserted saline lock: 24 gauge in right forearm, using aseptic technique. Blood sv collected. Flushed right forearm with 2 ml normal saline. 18:49 CT Stone Protocol In Process Unspecified. EDMS 18:[address] Patient moved back from [address]. sv 18:53 Urine --Ancillary (enter results) Sent. sv 19:05 Report given to Catrachita TOLEDO. sv 19:15 Primary Nurse role handed off by Kiara Zambrano RN sv 19:28 Catrachita Nation, [place] is Primary Nurse. ea 20:48 IV discontinued, intact, bleeding controlled, No redness/swelling at site. Pressure ea dressing applied. 20:51 Abimael Vargas MD is Referral Physician. jmm 21:03 No provider procedures requiring assistance completed. ea Administered Medications: 18:44 Drug: NS 0.9% 1000 ml Route: IV; Rate: 1 bolus; Site: right forearm; sv 21:00 Follow up: Response: No adverse reaction; IV Status: Completed infusion; IV Intake: ea 1000ml 18:44 Drug: Zofran (Ondansetron) 4 mg Route: IVP; Site: right forearm; sv 21:00 Follow up: Response: No adverse reaction ea 21:00 Follow up: Response: No adverse reaction ea 18:46 Drug: fentaNYL (PF) 50 mcg Route: IVP; Site: right forearm; sv 21:00 Follow up: Response: No adverse reaction ea 19:29 Drug: Ketorolac 30 mg Route: IVP; Site: right forearm; ea 21:00 Follow up: Response: No adverse reaction ea Intake: 21:00 IV: 1000ml; Total: 1000ml. ea Outcome: 20:51 Discharge ordered by . val 21:03 Discharged to home ambulatory, with family. ea 21:03 Condition: stable 21:03 Discharge instructions given to patient, Instructed on discharge instructions, follow up and referral plans. medication usage, Demonstrated understanding of instructions, follow-up care, medications, Prescriptions given X 2. 21:04 Patient left the ED. ea Signatures: Dispatcher [employer] EDKiara Long RN RN sv Mickail, Joel, PA PA jmm Martinez, Amelia as Antunez, Elena, RN RN ea Graham, Kristen, RN RN kg Corrections: (The following items were deleted from the chart) 16:08 16:06 Home Meds: None; kg kg
--- NOTE | 2020-09-02 20:52 | EDPHYS ---
Physician Documentation [facility] Name: Shaan Woods Age: 34 yrs Sex: Female : 1985 Arrival Date: 09/02/2020 Time: 15:44 Bed 4 Private MD: ED Physician Nando Miranda HPI: 09/02 16:25 This 34 yrs old Female presents to ER via Ambulatory with complaints of jmm Abdominal Pain. 16:25 The patient presents with abdominal pain in the lower abdomen, right lower quadrant. jmm Onset: The symptoms/episode began/occurred acutely, today. Associated signs and symptoms: Pertinent positives: vomiting. The symptoms are described as achy, sharp. Modifying factors: The symptoms are alleviated by nothing, the symptoms are aggravated by nothing. The patient has experienced similar episodes in the past, several times. 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 - Social history:: Smoking status: Patient reports the use of cigarette tobacco products, smokes one pack cigarettes per day. ROS: 16:25 Constitutional: Negative for fever, chills, and weight loss, Cardiovascular: Negative jmm for chest pain, palpitations, and edema, Respiratory: Negative for shortness of breath, cough, wheezing, and pleuritic chest pain. 16:25 Abdomen/GI: Positive for abdominal pain. 16:25 All other systems are negative. Exam: 16:25 Constitutional: This is a well developed, well nourished patient who is awake, alert, jmm and in no acute distress. Head/Face: atraumatic. Eyes: EOMI, no conjunctival erythema appreciated ENT: Moist Mucus Membranes Neck: Trachea midline, Supple Chest/axilla: Normal chest wall appearance and motion. Cardiovascular: Regular rate and rhythm. No edema appreciated Respiratory: Normal respirations, no respiratory distress appreciated 16:25 Skin: General appearance color normal MS/ Extremity: Moves all extremities, no obvious deformities appreciated, no edema noted to the lower extremities Neuro: Awake and alert, normal gait Psych: Behavior is normal, Mood is normal, Patient is cooperative and pleasant 16:25 Abdomen/GI: Inspection: abdomen appears normal, Bowel sounds: normal, Palpation: mild abdominal tenderness, in the right lower quadrant. Vital Signs: 16:03 BP 98 / 78; Pulse 78; Resp 17; Temp 98.0(O); Pulse Ox 99% on R/A; Weight 48.4 kg; kg Height 4 ft. 11 in. (149.86 cm); Pain 9/10; 18:59 BP 128 / 63; Pulse 55; Resp 20; Pulse Ox 100% on R/A; sv 20:48 BP 99 / 60; Pulse 77; Resp 18; Pulse Ox 98% ; ea 16:03 Body Mass Index 21.55 (48.40 kg, 149.86 cm) kg MDM: 18:17 Patient medically screened. [facility] 20:50 Data reviewed: vital signs, nurses notes. Counseling: I had a detailed discussion with val the patient and/or guardian regarding: the historical points, exam findings, and any diagnostic results supporting the discharge/admit diagnosis, lab results, radiology results, the need for outpatient follow up, to return to the emergency department if symptoms worsen or persist or if there are any questions or concerns that arise at home. ED course: Patient's pain is relieved in the ER. Patient is advised to follow-up with urology for further evaluation. Patient otherwise given strict return precautions. Patient understood and agrees to plan of care.. 09/02 16:25 Order name: Urine Dipstick-Ancillary; Complete Time: 18:17 [facility] 09/02 16:26 Order name: Urine --Ancillary (enter results) 09/02 16:26 Order name: Urine --Ancillary; Complete Time: 18:17 [facility] 09/02 18:17 Order name: Basic Metabolic Panel; Complete Time: 19:52 [facility] 09/02 18:17 Order name: CBC with Diff; Complete Time: 19:14 [facility] 09/02 18:17 Order name: Hepatic Function; Complete Time: 19:52 [facility] 09/02 18:17 Order name: Lipase; Complete Time: 19:52 [facility] 09/02 18:17 Order name: IV Saline Lock; Complete Time: 18:48 [facility] 09/02 18:17 Order name: Labs collected and sent; Complete Time: 18:48 [facility] 09/02 18:33 Order name: CT Stone Protocol; Complete Time: 19:03 [facility] Administered Medications: 18:44 Drug: NS 0.9% 1000 ml Route: IV; Rate: 1 bolus; Site: right forearm; sv 21:00 Follow up: Response: No adverse reaction; IV Status: Completed infusion; IV Intake: ea 1000ml 18:44 Drug: Zofran (Ondansetron) 4 mg Route: IVP; Site: right forearm; sv 21:00 Follow up: Response: No adverse reaction ea 21:00 Follow up: Response: No adverse reaction ea 18:46 Drug: fentaNYL (PF) 50 mcg Route: IVP; Site: right forearm; sv 21:00 Follow up: Response: No adverse reaction ea 19:29 Drug: Ketorolac 30 mg Route: IVP; Site: right forearm; ea 21:00 Follow up: Response: No adverse reaction ea Disposition: 09/03 07:35 Co-signature as Attending Physician, Nando Miranda MD. rn Disposition Summary: 09/02/20 20:51 Discharge Ordered Location: Home [facility] Condition: Stable [facility] Diagnosis - Calculus of ureter [facility] Followup: [facility] - With: Abimael Vargas MD - When: 2 - 3 days - Reason: Recheck today's complaints, Continuance of care, Re-evaluation by your physician Discharge Instructions: - Discharge Summary Sheet [facility] - Kidney Stones [facility] Forms: - Medication Reconciliation Form [facility] - Thank You Letter [facility] - Antibiotic Education [facility] - Prescription Opioid Use [facility] Prescriptions: - ibuprofen 200 mg Oral capsule - take 2 capsule by ORAL route every 4-6 hours as needed; 30 capsule; Refills: 0, [facility] Product Selection Permitted - ondansetron 4 mg Oral tablet,disintegrating - place 1 tablet by TRANSLINGUAL route every 4-6 hours As needed; 30 tablet; [facility] Refills: 0, Product Selection Permitted 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
[2020-09-04 02:38] VITALS: TEMP 98
[2020-09-04 02:42] VITALS: BP 99/60; O2SAT 98
== END 2020-09-02 21:04 | disposition home or self-care (01) ==
LOC: ER 15:43
DX: N13.2 Hydronephrosis with renal and ureteral calculous obstruction (principal); F17.210 Nicotine dependence, cigarettes, uncomplicated; Z87.442 Personal history of urinary calculi
CPT/HCPCS: 36415; 74176; 76377; 80048; 80076; 81003; 81025; 83690; 85025; 96361; 96374; 96375; 99284; J2405; J3010; J7030

== ENCOUNTER 2022-06-27 15:55 | Emergency (ER) | payer SELFPAY ==
--- OUTSIDE RECORDS SUMMARY | 2022-06-27 15:59 | XMS REPORT | Continuity of Care Document ---
:1985 Author Organization [facility] t Address [address] [place] [address] Care Team Providers Name Role Phone PCP, PATIENT DOES NOT HAVE A Primary Care Physician UnavailJOHN Martinez Attending Clinician Unavailable ELIS WATKINS Attending Clinician Unavailable Provider, [facility] Attending Clinician Unavailable Elis Watkins CNM Attending Clinician Doctor Unassigned, [place] Attending Clinician Unavailable Pcp, Patient Does Not Have A Attending Clinician [phone] RICHMOND MCDERMOTT Attending Clinician Unavailable Jo-Ann Liao MD Attending Clinician Payers Payer Name Policy Type Policy Number Effective Date Expiration Date Vero giron [facility] [id number] 2016 00:00:00 Problems Condition Condition Condition Status Onset Resolution Last Treating Co mments Source Name Details Category Date Date Treatment Clinician Date Cervical Cervical Disease Active 2016-02 Overview: Un levar high risk high risk 2-05 Formattin i ty of human human 00:00: g of this [place] papillomav papillomav 00 note Me dical irus (HPV) irus (HPV) might be Branch DNA test DNA test different positive positive from the original. + HPV and NIL identifie d on pap. Pt will need follow up cotesting in 12 months Tobacco Tobacco Disease Active 2016-02 Univers use use 1-30 ity of disorder disorder 00:00: [place] 00 [facility] H/O H/O Disease Active 2016-02 Univers anxiety anxiety 30 ity of disorder disorder 00:00: [place] 00 [facility] Allergies, Adverse Reactions, Alerts Allergy Allergy Status Severity Reaction(s) Onset Inactive Treating Comm ents Source Name Type Date Date Clinician Penicill Propensi Active Hives Univer s ins ty to 5-09 ity of adverse 00:00: [place] reaction 00 Medical s Branch PENICILL Drug Active Hives Univers INS Class 5-09 ity of 00:00: [place] 00 [facility] Hydromor Propensi Active Hallucinatio Univers phone ty to ns 5-09 ity of (Bulk) adverse 00:00: [place] reaction Medical s Branch Hydromor Propensi Active Hallucinatio 2014-02 Univers phone ty to ns 0-26 ity of (Bulk) adverse 00:00: [place] reaction 00 Medical s Branch Penicill Propensi Active Other - See 2014-02 U nivers in ty to comments 0-26 ity of adverse 00:00: [place] reaction Medical s Branch HYDROMOR DRUG Active Hallucinates 2014-02 Un levar PHONE 0-26 ity of (BULK) 00:00: [place] 00 [facility] PENICILL DRUG Active Other-Cmnt 2014-02 Univ ers IN INGREDI 0-26 ity of 00:00: [place] [facility] [place] Social History Social Habit Start Date Stop Date Quantity Comments Source History of tobacco Cigarette Smoker University of use [facility] History [facility] o f Alcohol Frequency [facility] History [facility] o f Alcohol Std Drinks [facility] History [facility] University o f Alcohol Binge [facility] al Branch Exposure to Not sure [place] of SARS-CoV-2 (event) [facility] Alcohol intake 2018-10-20 2018-10-20 .14 /d University of 00:00:00 00:00:00 [facility] Cigarettes smoked 2017-01-06 2017-01-06 Univers ity of current (pack per 00:00:00 00:00:00 [facility]) - Reported Branch Alcohol Comment 2017-01-06 2017-01-06 on occassion Univers ity of 00:00:00 00:00:00 [facility] Tobacco Comment 2017-01-06 2017-01-06 started at age Unive rsity of 00:00:00 00:00:00 13 years [facility] Tobacco use and 2017-01-06 2017-01-06 Never used Universit y of exposure 00:00:00 00:00:00 [facility] Sex Assigned At [birth year] Universit y of 00:00:00 00:00:00 [facility] Smoking Status Start Date Stop Date Source Unknown if ever smoked Universit y [facility] Current every day smoker 2017-01-06 [facility]:00[facility]00 [facility] Ordered Filled Start Stop Current Ordering Indication Dosage Frequency Signature Comments Components Source Medication Medication Date Date Medication? Clinician (SIG) Name Name No known 2020-02 No Univers medications 02-15 ity of 13:59: [place] 19 [facility] metroNIDAZO 2020-02 No [id number] 500mg Take 1 Univers LE 500 mg 02-15 tablet by ity of tablet 00:00: 05:59 mouth 2 [place] 00 :00 (two) Medical times Branch daily for 7 days. No known No Univers medications ity of [facility] Vital Signs Vital Name Observation Time Observation Value Comments Source Systolic blood 2020-12-16 19:45:00 121 mm[Hg] Univer sity of pressure [facility] Diastolic blood 2020-12-16 19:45:00 80 mm[Hg] Unive [facility] Heart rate 2020-12-16 19:45:00 106 /min [facility] Body temperature 2020-12-16 19:45:00 35.67 Sindy [facility] Respiratory rate 2020-12-16 19:45:00 18 /min [facility] Body height 2020-12-16 19:45:00 149[facility]9 [facility] Body weight 2020-12-16 19:45:00 49.306 kg [facility] BMI 2020-12-16 19:45:00 21.95 kg/m2 [facility] Diastolic blood 2018-09-29 13:24:00 96 mm[Hg] [facility] 2018-09-29 13:24:00 130 /min [facility] Respiratory rate 2018-09-29 13:24:00 22 /min [facility] Oxygen saturation in 2018-09-29 13:24:00 100 /min [facility] Arterial blood by [facility] Pulse oximetry Branch Systolic blood 2018-09-29 13:24:00 146 mm[Hg] Kacey yates of pressure [facility] Body weight 2018-09-29 13:21:00 43.545 [facility] BMI 2018-09-29 13:21:00 19.39 kg/m2 [facility] Procedures Procedure Date / Time Performed Performing Clinician Sourc e GC & CHLAMYDIA 2020-12-16 20:19:00 Elis Watkins [facility] AMPLIFIED ASSAY [facility] HIV 1/2 AG-AB WITH 2020-12-16 20:19:00 Elis Watkins [facility] REFLEX [facility] GALV ONLY - SYPHILIS 2020-12-16 20:19:00 Elis Watkins [facility] IGG/IGM [facility] URINE CULTURE 2020-12-16 20:17:00 Elis Watkins [facility] POCT URINALYSIS W/O 2020-12-16 19:48:00 Elis Watkins [facility] SPECIFIC GRAVITY [facility] NOTICE OF PRIVACY 2018-09-29 13:16:04 Doctor Unassigned, No [facility] PRACTICES Name Medical [place] Encounters Start End Encounter Admission Attending Care Care Encounter Source Date/Time Date/Time Type Type Clinicians Facility Department ID 2021-01-28 2021-01-28 Outpatient Wilma AKINS [facility] [id number] Univers 10:15:00 10:15:00 JOHN meier o starla [facility] 2021-01-28 2021-01-28 Outpatient Wilma AKINS [facility] [id number] Univers 09:45:00 09:45:00 JOHN meier o starla [facility] 2020-12-16 2020-12-16 Outpatient Wilma WATKINS [facility] [id number] Univers 13:30:00 14:41:29 ELIS meier [facility] 2020-12-16 2020-12-16 Office Provider, Sat[place] [facility] [id number] Univers 13:27:50 14:41:29 Visit Vero Elis So [employer] [id number] 0 ity of [facility] [id number] Band[place] as MATERNAL [id number] [facility] ical & CHILD [address] [place] [address] 2020-12-16 2020-12-16 [id number] Univers 13:30:00 13:30:00 ELIS ity [facility] 2020-12-16 2020-12-16 Outpatient R VERO [facility] [id number] Univers 13:30:00 13:30:00 ELIS [facility] 2020-12-16 2020-12-16 Orders Doctor PRICILA [id number] Univers 00:00:00 00:00:00 Only Unassigned, [place] [id number] ity of [place] [facility] [id number] Bandar as [phone] [address] 2020-12-15 2020-12-15 Telephone Pcp, [facility] [id number] Univers 00:00:00 00:00:00 Patient [employer] [id number] it y of Does Not [facility] [id number] [place] MATERNAL [id number] [facility] & CHILD [address] [place] [address] 2019-10-16 2019-10-16 Outpatient R BALDEMAR [facility] [id number] Univers 14:45:00 14:45:00 RICHMOND ity o f [facility] 2018-09-29 2018-09-29 Emergency [facility], [facility] [id number] Univers 08:19:26 09:00:00 Jo-Ann Vero [place] [id number] ity of [place] [id number] [phone] [address] Results Test Description Test Time Test Comments Results Result Comments Source GALV ONLY - SYPHILIS IGG/IGM 2020-12-17 16:59:51 Test Item Value Reference Range Interpretation Comme nts Syphilis IgG/IgM (test code = Non-reactive Non-reactive 06601-0) NIKHIL (test code = NIKHIL) Non-reactive - No serologic evidence of T. pallidum infection. Cannot exclude incubating or early syphilis. Submit a second specimen in 2-4 weeks if syphilis is clinically suspected. Equivocal - Further testing to follow. Reactive - Further testing to follow. Lab Interpretation (test code = Normal 05948-7) [facility] WITH [id number] 05:53:01 Test Item Value Reference Range Interpretation Comments HIV Negative Negative Semi-quantitative (test code = 50534-6) NIKHIL (test code = Non-reactive for HIV-1 NIKHIL) antigen and HIV-1/HIV-2 antibodies. ?No laboratory evidence of HIV infection. ?Repeat in 2-4 weeks if acute HIV infection is suspected. [facility] W/O SPECIFIC [id number] 19:48:00 Test Item Value Reference Range Interpretation Comments POCT PH U (test code = 3254) 6 mg/dl 5-8 POCT U LEUK EST (test code = large Negative - Negative 3263) POCT U NIT (test code = 3262) negative Negative - Negative POCT U PROT (test code = 3259) Negative - Negative POCT U GLU (test code = 3256) negative Negative - Negative POCT U KETONE (test code = 3258) negative Negative - Negative POCT U BLD (test code = 3257) negative Negative - Negative [facility]
[2022-06-27 16:49] LABS: Specific Gravity 1.029 (1.005-1.030); Urine Bacteria None Seen /HPF (<20); Urine Bilirubin NEGATIVE (Negative); Urine Blood Negative (Negative); Urine Clarity Clear (Clear); Urine Color Light-Yellow (Yellow); Urine Glucose NEGATIVE (Negative); Urine Mucus 2+ /HPF (None Seen); Urine Protein TRACE (Negative); Urine RBC None Seen /HPF (None Seen); Urine Urobilinogen Normal (Normal); Urine pH 5.5 (5.0-7.0)
--- NOTE | 2022-06-27 17:05 | ER ---
Nurse's Notes [facility] Name: Shaan Woods Age: 36 yrs Sex: Female : 1985 Arrival Date: 06/27/2022 Time: 15:55 Bed 18 Private MD: Diagnosis: UTI/ Urinary tract infection, site not specified;Low back pain Presentation: 06/27 16:10 Chief complaint: Patient states: lower back and left hip is hurting, started iw night , the right side feels sore , denies injury , denies urinary s/s. Coronavirus screen: At this time, the client does not indicate any symptoms associated with coronavirus-19. Ebola Screen: Patient negative for fever greater than or equal to 101.5 degrees Fahrenheit, and additional compatible Ebola Virus Disease symptoms Patient denies exposure to infectious person. Patient denies travel to an Ebola-affected area in the 21 days before illness onset. No symptoms or risks identified at this time. Initial Sepsis Screen: Does the patient meet any 2 criteria? No. Patient's initial sepsis screen is negative. Does the patient have a suspected source of infection? No. Patient's initial sepsis screen is negative. Risk Assessment: Do you want to hurt yourself or someone else? Patient reports no desire to harm self or others. 16:10 Method Of Arrival: Ambulatory iw 16:10 Acuity: HASEEB 3 iw Historical: - Allergies: 16:12 Bactrim; iw 16:12 hydromorphone HCl; iw 16:12 PENICILLINS; iw - PMHx: 16:12 Anxiety; Kidney stone; iw - PSHx: 16:12 fistula repair; iw - Immunization history:: Adult Immunizations. - Social history:: Smoking status: Patient reports the use of cigarette tobacco products. Screenin:38 [facility] ED Fall Risk Assessment (Adult) History of falling in the last 3 months, vg1 including since admission No falls in past 3 months (0 pts). Abuse screen: Denies threats or abuse. Denies injuries from another. Nutritional screening: No deficits noted. Tuberculosis screening: No symptoms or risk factors identified. Assessment: 16:38 Pain: Complains of pain in back and left lower quadrant Pain currently is 8 out of 10 vg1 on a pain scale. Pain began 2-3 days ago. Neuro: Level of Consciousness is awake, alert, obeys commands, Oriented to person, place, time, situation. Cardiovascular: Patient's skin is warm and dry. Respiratory: Airway is patent Respiratory effort is even, unlabored. GI: Patient currently denies nausea, vomiting. : Denies burning with urination, pain urgency, reports hx of kidney stones. 17:30 Reassessment: Patient appears in no apparent distress at this time. No changes from vg1 previously documented assessment. Patient and/or family updated on plan of care and expected duration. Pain level reassessed. Patient is alert, oriented x 3, equal unlabored respirations, skin warm/dry/pink. Vital Signs: 16:10 BP 110 / 75; Pulse 114; Resp 16; Temp 97.4; Pulse Ox 100% on R/A; Weight 45.36 kg; iw Height 4 ft. 11 in. ; Pain 7/10; 16:40 BP 102 / 64; Pulse 100; Resp 16; Pulse Ox 100% on R/A; vg1 18:01 BP 103 / 67; Pulse 95; Resp 16; Pulse Ox 100% ; vg1 16:10 Body Mass Index 20.20 (45.36 kg, 149.86 cm) iw 16:10 Pain Scale: Adult iw ED Course: 15:57 Patient arrived in ED. ts1 15:57 Kari Prescott FNP-C [facility]. snw 15:57 Harish Maldonado MD is Attending Physician. snw 16:12 Triage completed. iw 16:12 Arm band placed on. iw 16:38 Mariaelena Deleon, RN is Primary Nurse. vg1 16:38 Patient has correct armband on for positive identification. Bed in low position. Call vg1 light in reach. Side rails up X 1. 16:38 No provider procedures requiring assistance completed. vg1 16:41 Warm blanket given. Pulse ox on. NIBP on. mm9 16:41 PREGU Sent. mm9 16:41 Urine W/Microscopic (UAM) Sent. mm9 16:41 Urine collected: clean catch specimen. mm9 18:01 Patient did not have IV access during this emergency room visit. vg1 Administered Medications: 17:23 Drug: Ketorolac IM 15 mg Route: IM; Site: right deltoid; vg1 18:00 Follow up: Response: No adverse reaction vg1 17:30 Not Given (Patient Refused): Rocephin (cefTRIAXone) IM 1 grams IM once vg1 17:30 Not Given (Patient Refused): HYDROcodone-acetaminophen PO 5 mg-325 mg 1 tabs PO once vg1 18:00 Drug: Nitrofurantoin PO 100 mg Route: PO; vg1 18:00 Follow up: Response: Medication administered at discharge. vg1 18:00 Drug: Ciprofloxacin PO 500 mg Route: PO; vg1 18:00 Follow up: Response: Medication administered at discharge. vg1 Medication: 16:38 VIS not applicable for this client. vg1 Outcome: 17:05 Discharge ordered by MD. pink 18:01 Discharged to home ambulatory. vg1 18:01 Condition: good 18:01 Discharge instructions given to patient, Instructed on discharge instructions, follow up and referral plans. medication usage, Demonstrated understanding of instructions, follow-up care, medications, Prescriptions given X 3. 18:02 Patient left the ED. vg1 Signatures: Kari Prescott, DIRECTOR OF PATIENT SAFETY-C DIRECTOR OF PATIENT SAFETY-Csnw Carmen Mullins RN RN iw Garcia, Victoria, RN RN vg1 Keke Dickinson mm9 Ivory Pederson, [place] PAS ts1
--- NOTE | 2022-06-27 17:05 | EDPHYS ---
Physician Documentation [facility] Name: Shaan Woods Age: 36 yrs Sex: Female : 1985 Arrival Date: 06/27/2022 Time: 15:55 Bed 18 Private MD: ED Physician Harish Maldonado HPI: 06/27 17:02 This 36 yrs old Female presents to ER via Ambulatory with complaints of Back Pain, Hip snw Pain. 17:02 Pt c/o lower abd/lower back pain "circling" in lower pelvis, denies kidney stone type snw pain, denies hematuria. Denies fever. Started last pm and is worse today.. Historical: - Allergies: 16:12 Bactrim; iw 16:12 hydromorphone HCl; iw 16:12 PENICILLINS; iw - PMHx: 16:12 Anxiety; Kidney stone; iw - PSHx: 16:12 fistula repair; iw - Immunization history:: Adult Immunizations. - Social history:: Smoking status: Patient reports the use of cigarette tobacco products. ROS: 17:01 Constitutional: Negative for fever, chills, and weight loss, Eyes: Negative for injury, snw pain, redness, and discharge, ENT: Negative for injury, pain, and discharge, Neck: Negative for injury, pain, and swelling, Cardiovascular: Negative for chest pain, palpitations, and edema, Respiratory: Negative for shortness of breath, cough, wheezing, and pleuritic chest pain, : Negative for injury, bleeding, discharge, and swelling, MS/Extremity: Negative for injury and deformity, Skin: Negative for injury, rash, and discoloration, Neuro: Negative for headache, weakness, numbness, tingling, and seizure, Psych: Negative for depression, anxiety, suicide ideation, homicidal ideation, and hallucinations. 17:01 Abdomen/GI: Positive for abdominal pain, of the suprapubic area. Exam: 17:01 Constitutional: This is a well developed, well nourished patient who is awake, alert, snw and in no acute distress. Head/Face: Normocephalic, atraumatic. Eyes: Pupils equal round and reactive to light, extra-ocular motions intact. Lids and lashes normal. Conjunctiva and sclera are non-icteric and not injected. Cornea within normal limits. Periorbital areas with no swelling, redness, or edema. ENT: Nares patent. No nasal discharge, no septal abnormalities noted. Tympanic membranes are normal and external auditory canals are clear. Oropharynx with no redness, swelling, or masses, exudates, or evidence of obstruction, uvula midline. Mucous membranes moist. Neck: Trachea midline, no thyromegaly or masses palpated, and no cervical lymphadenopathy. Supple, full range of motion without nuchal rigidity, or vertebral point tenderness. No Meningismus. Chest/axilla: Normal chest wall appearance and motion. Nontender with no deformity. No lesions are appreciated. Cardiovascular: Regular rate and rhythm with a normal S1 and S2. No gallops, murmurs, or rubs. Normal PMI, no JVD. No pulse deficits. Respiratory: Lungs have equal breath sounds bilaterally, clear to auscultation and percussion. No rales, rhonchi or wheezes noted. No increased work of breathing, no retractions or nasal flaring. Abdomen/GI: Soft, non-tender, with normal bowel sounds. No distension or tympany. No guarding or rebound. No evidence of tenderness throughout. Skin: Warm, dry with normal turgor. Normal color with no rashes, no lesions, and no evidence of cellulitis. MS/ Extremity: Pulses equal, no cyanosis. Neurovascular intact. Full, normal range of motion. Neuro: Awake and alert, GCS 15, oriented to person, place, time, and situation. Cranial nerves II-XII grossly intact. Motor strength 5/5 in all extremities. Sensory grossly intact. Cerebellar exam normal. Normal gait. Psych: Awake, alert, with orientation to person, place and time. Behavior, mood, and affect are within normal limits. 17:01 Back: pain, that is moderate, that is severe, of the low back area. 17:01 Neuro: Orientation: is normal, Mentation: is normal. Vital Signs: 16:10 BP 110 / 75; Pulse 114; Resp 16; Temp 97.4; Pulse Ox 100% on R/A; Weight 45.36 kg; iw Height 4 ft. 11 in. ; Pain 7/10; 16:40 BP 102 / 64; Pulse 100; Resp 16; Pulse Ox 100% on R/A; vg1 18:01 BP 103 / 67; Pulse 95; Resp 16; Pulse Ox 100% ; vg1 16:10 Body Mass Index 20.20 (45.36 kg, 149.86 cm) iw 16:10 Pain Scale: Adult iw MDM: 16:02 Patient medically screened. snw 17:07 Differential diagnosis: arthritis, chronic back pain, Fatigue sprain, Ureterolithiasis snw UTI, muscle spasm, sciatica. Data reviewed: vital signs, nurses notes. I considered the following discharge prescriptions or medication management in the emergency department Medications were administered in the Emergency Department. See MAR. Counseling: I had a detailed discussion with the patient and/or guardian regarding: the historical points, exam findings, and any diagnostic results supporting the discharge/admit diagnosis, lab results, the need for outpatient follow up, for definitive care, to return to the emergency department if symptoms worsen or persist or if there are any questions or concerns that arise at home. Special discussion: Based on the history and exam findings, there is no indication for further emergent testing or inpatient evaluation. I discussed with the patient/guardian the need to see the primary care provider for further evaluation of the symptoms. 06/27 16:23 Order name: Urine W/Microscopic (UAM); Complete Time: 16:51 snw 06/27 16:23 Order name: PREGU; Complete Time: 16:51 snw 06/27 16:53 Order name: Urine Culture EDMS Administered Medications: 17:23 Drug: Ketorolac IM 15 mg Route: IM; Site: right deltoid; vg1 18:00 Follow up: Response: No adverse reaction vg1 17:30 Not Given (Patient Refused): Rocephin (cefTRIAXone) IM 1 grams IM once vg1 17:30 Not Given (Patient Refused): HYDROcodone-acetaminophen PO 5 mg-325 mg 1 tabs PO once vg1 18:00 Drug: Nitrofurantoin PO 100 mg Route: PO; vg1 18:00 Follow up: Response: Medication administered at discharge. vg1 18:00 Drug: Ciprofloxacin PO 500 mg Route: PO; vg1 18:00 Follow up: Response: Medication administered at discharge. vg1 Disposition Summary: 06/27/22 17:05 Discharge Ordered Location: Home snw Condition: Stable snw Diagnosis - UTI/ Urinary tract infection, site not specified snw - Low back pain snw Followup: snw - With: Emergency Department - When: As needed - Reason: Worsening of condition Followup: snw - With: Private Physician - When: 1 - 2 days - Reason: Recheck today's complaints, Continuance of care, Re-evaluation by your physician Discharge Instructions: - Discharge Summary Sheet snw - Acute Back Pain, Adult snw - Musculoskeletal Pain snw - Urinary Tract Infection, Adult snw - Rehydration, Adult snw Forms: - Work release form snw - Medication Reconciliation Form snw - Thank You Letter snw - Antibiotic Education snw - Prescription Opioid Use snw Prescriptions: - Cipro 500 mg Oral Tablet - take 1 tablet by ORAL route every 12 hours for 7 days; 14 tablet; Refills: 0, snw Product Selection Permitted - Diclofenac Sodium 75 mg Oral Tablet Sustained Release - take 1 tablet by ORAL route 2 times per day; 30 tablet; Refills: 0, Product snw Selection Permitted - promethazine 25 mg Oral Tablet - take 1 tablet by ORAL route every 6 hours As needed; 20 tablet; Refills: 0, snw Product Selection Permitted Signatures: Dispatcher [employer] Kari De Leon, TREASURY ASSISTANT-C TREASURY ASSISTANT-Csnw Carmen Mullins, RN RN iw Mariaelena Deleon RN RN vg1
[2022-06-27] MEDS ORDERED: HYDROCODONE/APAP 5/325 MG TAB ONE (17:23)
[2022-06-27] MEDS ORDERED: CEFTRIAXONE 1000 MG/VIAL ONE (17:23)
[2022-06-27] MEDS ORDERED: KETOROLAC 30 MG/ML INJ ONE (17:23)
[2022-06-27] MEDS ORDERED: LIDOCAINE 1% MPF 2 ML AMPULE ONE (17:24)
[2022-06-27] MEDS ORDERED: CIPROFLOXACIN HCL 500 MG TAB ONE (18:02)
[2022-06-27] MEDS ORDERED: NITROFURAN MACRO 100 MG CAP PO ONE (18:02)
[2022-06-27 18:39] VITALS: O2SAT 97
[2022-06-27 18:43] VITALS: BP 118/70; TEMP 98.3
== END 2022-06-27 18:02 | disposition home or self-care (01) ==
LOC: ER 15:55
DX: N39.0 Urinary tract infection, site not specified (principal); Z87.442 Personal history of urinary calculi; Z72.0 Tobacco use; Z88.0 Allergy status to penicillin; Z88.1 Allergy status to other antibiotic agents; Z88.5 Allergy status to narcotic agent
CPT/HCPCS: 81001; 81025; 87086; 87088; J0696

== ENCOUNTER → 2023-03-07 | Emergency (ER) | payer SELFPAY ==
[~2023-03-07] MED LIST: DIAZEPAM 5 MG TABLET ONE; HYDROCODONE/APAP 5/325 MG TAB ONE; KETOROLAC 30 MG/ML INJ ONE; ONDANSETRON 4 MG (ODT) TAB ONE
--- OUTSIDE RECORDS SUMMARY | 2023-03-07 17:38 | XMS REPORT | Continuity of Care Document ---
Author Name Unknown Address [address] [place] [address] [facility] thconnect Address [address] [place] [address] Care Team Providers Care Beef Farmer Name Role Phone PCP, PATIENT DOES NOT HAVE A Primary Care Physic mary Unavailable JOHN AKINS Attending Clinician Unavailab ELIS Thao Attending Clinician Unavaila [facility] Provider, [facility] Temp Attending Clinician Mary Elis Puente CNM Attending Clinician Doctor Unassigned, [place] Attending Clinician U navailable Pcp, Patient Does Not Have A Attending Clinician RICHMOND MCDERMOTT Attending Clinician Unavail able Jo-Ann Liao MD Attending Clinician Payers Payer Name Policy Type Policy Number Effective Date Expirati on Date Source [facility] [id number] 2016 00:00:00 Problems Condition Name Condition Details Condition Category Status Onset Date Resolution Date Last Treatment Date Treating Clinician Comments Source Cervical high risk human papillomav irus (HPV) DNA test positive Cervical high risk human papillomav irus (HPV) DNA test positive Disease Active 2016-02 00:00: 00 Overview: Formattin g of this note might be different from the original. + HPV and NIL identifie d on pap. Pt will need follow up cotesting in 12 months [facility] Tobacco use disorder Tobacco use disorder Disease Active 2016-02 00:00: 00 [facility] H/O anxiety disorder H/O anxiety disorder Disease Active 2016-02 00:00: 00 [facility] Allergies, Adverse Reactions, Alerts Allergy Name Allergy Type Status Severity Reaction(s) Onset Date Inactive Date Treating Clinician Comments Source Penicill ins Propensi ty to adverse reaction s Active Hives 06-15 00:00: 00 [facility] PENICILL INS Drug Class Active Hives 06-15 00:00: 00 [facility] Hydromor phone (Bulk) Propensi ty to adverse reaction s Active Hallucinatio ns 06-15 00:00: 00 [facility] Hydromor phone (Bulk) Propensi ty to adverse reaction s Active Hallucinatio ns 2014-02 00:00: 00 [facility] Penicill in Propensi ty to adverse reaction s Active Other - See comments 2014-02 00:00: 00 [facility] HYDROMOR PHONE (BULK) DRUG Active Hallucinates 2014-02 00:00: 00 [facility] PENICILL IN DRUG INGREDI Active Other-Cmnt 2014-02 00:00: 00 [facility] Social History Social Habit Start Date Stop Date Quantity Comments Source History of tobacco use Cigarette Smoker [facility] History SDOH Alcohol Frequency [facility] History SDOH Alcohol Std Drinks [facility] History SDOH Alcohol Binge [facility] Exposure to SARS-CoV-2 (event) Not sure [facility] Alcohol intake 2018-10-20 00:00:00 2018-10-20 00:00:00 .14 /d [facility] Cigarettes smoked current (pack per day) - Reported 2017-01-06 00:00:00 2017-01-06 00:00:00 [facility] Alcohol Comment 2017-01-06 00:00:00 2017-01-06 00:00:00 on occassion [facility] Tobacco Comment 2017-01-06 00:00:00 2017-01-06 00:00:00 started at age 13 years [facility] Tobacco use and exposure 2017-01-06 00:00:00 2017-01-06 00:00:00 Never used [facility] Sex Assigned At 1985 00:00:00 1985 00:00:00 [facility] Smoking Status Start Date Stop Date Source Unknown if ever smoked [facility] Current every day smoker 2017-01-06 00:00:00 [facility] Medications Ordered Medication Name Filled Medication Name Start Date Stop Date Current Medication? Ordering Clinician Indication Dosage Frequency Signature (SIG) Comments Components Source No known medications 2020-02 13:59: 19 No [facility] metroNIDAZO LE 500 mg tablet 2020-02 00:00: 00 12-24 05:59 :00 No [id number] 500mg Take 1 tablet by mouth 2 (two) times daily for 7 days. [facility] No known medications No Un levar [facility] Vital Signs Vital Name Observation Time Observation Value Comments S ource Systolic blood pressure 2020-12-16 19:45:00 121 mm[Hg] [facility] Diastolic blood pressure 2020-12-16 19:45:00 80 mm[Hg] [facility] Heart rate 2020-12-16 19:45:00 106 /min [facility] Body temperature 2020-12-16 19:45:00 35.67 Sindy [facility] Respiratory rate 2020-12-16 19:45:00 18 /min [facility] Body height 2020-12-16 19:45:00 149.9 cm [facility] Body weight 2020-12-16 19:45:00 49.306 kg [facility] BMI 2020-12-16 19:45:00 21.95 kg/m2 [facility] Diastolic blood pressure 2018-09-29 13:24:00 96 mm[Hg] [facility] Heart rate 2018-09-29 13:24:00 130 /min [facility] Respiratory rate 2018-09-29 13:24:00 22 /min [facility] Oxygen saturation in Arterial blood by Pulse oximetry 2018-09-29 13:24:00 100 /min [facility] Systolic blood pressure 2018-09-29 13:24:00 146 mm[Hg] [facility] Body weight 2018-09-29 13:21:00 43.545 kg [facility] BMI 2018-09-29 13:21:00 19.39 kg/m2 [facility] Procedures Procedure Date / Time Performed Performing Clinicia n Source GC & CHLAMYDIA AMPLIFIED ASSAY 2020-12-16 20:19:00 Elis Watkins [facility] HIV 1/2 AG-AB WITH REFLEX 2020-12-16 20:19:00 Elis Watkins [facility] GALV ONLY - SYPHILIS IGG/IGM 2020-12-16 20:19:00 Elis Watkins [facility] URINE CULTURE 2020-12-16 20:17:00 Elis Watkins [facility] POCT URINALYSIS W/O SPECIFIC GRAVITY 2020-12-16 19:48:00 Elis Watkins [facility] NOTICE OF PRIVACY PRACTICES 2018-09-29 13:16:04 Doctor Unassigned, [place] [facility] Encounters Start Date/Time End Date/Time Encounter Type Admission Type Attending Clinicians Care Facility Care Department Encounter ID Source 2021-01-28 10:15:00 2021-01-28 10:15:00 Outpatient JOHN QUEEN [facility] [id number] [facility] 2021-01-28 09:45:00 2021-01-28 09:45:00 Outpatient JHON QUEEN [facility] [id number] [facility] 2020-12-16 13:30:00 2020-12-16 14:41:29 Outpatient ELIS FRANCOIS [facility] [id number] [facility] 2020-12-16 13:27:50 2020-12-16 14:41:29 [facility] ORTHOTIC TECHNICIAN [facility] [id number] [facility] 2020-12-16 13:30:00 2020-12-16 13:30:00 Outpatient Wilma ELIS WATKINS [facility] [id number] [facility] 2020-12-16 13:30:00 2020-12-16 13:30:00 Outpatient ELIS FRANCOIS [facility] [id number] [facility] 2020-12-16 00:00:00 2020-12-16 00:00:00 Orders Only Doctor Unassigned, [place] [facility] [id number] [facility] 2020-12-15 00:00:00 2020-12-15 00:00:00 Telephone Pcp, Patient Does Not Have A [facility] ORTHOTIC TECHNICIAN [facility] [id number] [facility] 2019-10-16 14:45:00 2019-10-16 14:45:00 Outpatient RICHMOND CHRISTIE [facility] [id number] [facility] 2018-09-29 08:19:26 2018-09-29 09:00:00 Emergency Jo-Ann Liao S [facility] [id number] [facility] Results Test Description Test Time Test Comments Results Result Co mments Source [facility]-AB WITH [id number] 05:53:01* Test Item Value Reference Range Interpretation Comme nts HIV Semi-quantitative (test code = 38534-8) Negative Negative NIKHIL (test code = NIKHIL) Non-reactive for HIV-1 antigen and HIV-1/HIV-2 antibodies. ?No laboratory evidence of HIV infection. ?Repeat in 2-4 weeks if acute HIV infection is suspected. [facility] W/O SPECIFIC [id number] 19:48:00* Test Item Value Reference Range Interpretation Comme nts POCT PH U (test code = 3254) 6 mg/dl 5-8 POCT U LEUK EST (test code = 3263) large Negative - Negative POCT U NIT (test code = 3262) negative Negative - Negati ve POCT U PROT (test code = 3259) Negative - Negat juvencio POCT U GLU (test code = 3256) negative Negative - Negati ve POCT U KETONE (test code = 3258) negative Negative - Neg ative POCT U BLD (test code = 3257) negative Negative - Negati ve [facility]
[2023-03-07 18:36] LABS: Absolute Lymphocytes (CBC) 2.6 K/uL (0.7-4.9); Hematocrit 37.8 % (36.0-45.0); Lymphocytes % 25.6 % (15.3-44.8); MCV 88.3 fL (80-100); MPV 7.3 fL (7.6-11.3); Platelets 506 thou/uL (152-406); RBC Red Blood Cell Count 4.28 M/uL (3.86-4.86)
[2023-03-07 18:53] LABS: Potassium 3.7 mEq/L (3.5-5.1)
--- NOTE | 2023-03-07 20:05 | RAD REPORT ---
EXAM DESCRIPTION: CT - Neck Angio - 03/07/2023 7:32 pm CLINICAL HISTORY: Right sided neck pain Additional knees history also COMPARISON: No comparisons TECHNIQUE: Axial CT angiography images of the head was performed with multiplanar and maximum intens ity projection reconstructions. Images performed following intravenous administration of 100mL Isovue 370. All CT scans are performed using dose optimization technique as appropriate and may include automated exposure control or mA/KV adjustment according to patient size. Quantification of carotid stenosis, if any, is performed according to NASCET criteria. FINDINGS: A left aortic arch is identified with normal three vessel configuration of the great vesse ls. No significant flow abnormality is seen of the common carotid bilaterally. No significant stenosis is identified involving the cervical segments of both internal carotid arteri es. Normal flow is seen within both vertebral arteries. IMPRESSION: No significant flow abnormality of the neck vessels is identified. CAROTID STENOSIS REFERENCE USING NASCET CRITERIA: % ICA stenosis = (1 - narrowest ICA diameter/diameter of distal cervical ICA) x 100. Mild - <50% stenosis. Moderate - 50-69% stenosis. Severe - 70-94% stenosis. Near occlusion - 95-99% stenosis. Occluded - 100% stenosis.
--- NOTE | 2023-03-07 20:20 | ER ---
Nurse's Notes [facility] Name: Shaan Woods Age: 37 yrs Sex: Female : 1985 Arrival Date: 03/07/2023 Time: 17:35 Bed 12 Private MD: Diagnosis: Neck pain;Acute gingivitis Presentation: 03/07 18:03 Chief complaint: Patient states: Pt c/o right side neck and face pain x 2 days. Pt is tl4 unable to say where the pain originates. Pt has history of dental cavities. Coronavirus screen: Vaccine status: Patient reports being unvaccinated. Ebola Screen: Patient negative for fever greater than or equal to 101.5 degrees Fahrenheit, and additional compatible Ebola Virus Disease symptoms Patient denies exposure to infectious person. Patient denies travel to an Ebola-affected area in the 21 days before illness onset. No symptoms or risks identified at this time. Initial Sepsis Screen: Does the patient meet any 2 criteria? No. Patient's initial sepsis screen is negative. Does the patient have a suspected source of infection? No. Patient's initial sepsis screen is negative. Risk Assessment: Do you want to hurt yourself or someone else? Patient reports no desire to harm self or others. Onset of symptoms was March 05, 2023. 18:03 Method Of Arrival: Ambulatory tl4 18:03 Acuity: HASEEB 3 tl4 Triage Assessment: 18:06 General: Appears distressed, uncomfortable, Behavior is calm, cooperative. Pain: tl4 Complains of pain in head and neck. EENT: Reports pain in right ear and right jaw when swallowing. Neuro: No deficits noted. Cardiovascular: No deficits noted. Respiratory: No deficits noted. GI: No deficits noted. No signs and/or symptoms were reported involving the gastrointestinal system. : No deficits noted. No signs and/or symptoms were reported regarding the genitourinary system. Historical: - Allergies: 18:05 Bactrim; tl4 18:05 hydromorphone HCl; tl4 18:05 PENICILLINS; tl4 - PMHx: 18:05 Anxiety; Kidney stone; tl4 - PSHx: 18:05 fistula repair; tl4 - Immunization history:: Adult Immunizations unknown. - Social history:: Smoking status: Patient reports the use of cigarette tobacco products, smokes one-half pack cigarettes per day. Screenin:15 [facility] ED Fall Risk Assessment (Adult) Score/Fall Risk Level 0 - 2 = Low Risk [facility] Oriented to surroundings, Maintained a safe environment, Hourly rounding (assess needs \T\ fall precautionary measures) done. Abuse screen: Denies threats or abuse. Denies injuries from another. Nutritional screening: No deficits noted. Tuberculosis screening: No symptoms or risk factors identified. Assessment: 18:15 Reassessment: See triage assessment. nj1 18:15 Neuro: Level of Consciousness is awake, alert, obeys commands, Oriented to person, nj place, time, situation. 19:20 Reassessment: Patient appears in no apparent distress at this time. No changes from [facility] previously documented assessment. 20:06 Reassessment: Patient appears in no apparent distress at this time. Patient and/or or1 family updated on plan of care and expected duration. Pain level reassessed. Patient is alert, oriented x 3, equal unlabored respirations, skin warm/dry/pink. Patient states feeling better. Patient states symptoms have improved. Vital Signs: 18:03 BP 130 / 89; Pulse 114; Resp 18; Temp 98.3; Pulse Ox 100% on R/A; Weight 47.63 kg; tl4 Height 4 ft. 11 in. ; Pain 10/10; 20:06 BP 99 / 59; Pulse 85; Resp 16; Temp 98.8(TE); Pulse Ox 99% on R/A; Pain 5/10; nj1 20:43 BP 103 / 71; Pulse 89; Resp 16; Pulse Ox 100% ; nj1 18:03 Body Mass Index 21.21 (47.63 kg, 149.86 cm) tl4 18:03 Pain Scale: Adult tl4 20:06 Pain Scale: Adult [facility] ED Course: 17:37 Patient arrived in ED. mg5 17:55 Wisam Quintanilla DO is Attending Physician. ms3 18:05 Triage completed. tl4 18:06 Arm band placed on left wrist. tl4 18:14 Kristin Carranza, [place] is Primary Nurse. nj1 18:15 Patient has correct armband on for positive identification. Bed in low position. Call [facility] light in reach. Adult w/ patient. Provided Education on: call light, fall precautions. 18:25 Inserted saline lock: 22 gauge in right antecubital area, using aseptic technique. nj1 Blood collected. 19:33 CT Neck Angio In Process Unspecified. EDMS 20:20 Rhett Sterling DO is Referral Physician. ms3 20:44 No provider procedures requiring assistance completed. IV discontinued, intact, nj1 bleeding controlled. Administered Medications: 18:20 Drug: HYDROcodone-acetaminophen PO 5 mg-325 mg 1 tabs PO once Route: PO; nj1 19:20 Follow up: Response: No adverse reaction; Pain is unchanged, physician notified nj1 18:20 Drug: Diazepam PO 5 mg PO once Route: PO; nj1 19:20 Follow up: Response: No adverse reaction nj1 18:49 Drug: Ondansetron PO 4 mg PO once Route: PO; cm10 19:27 Follow up: Response: No adverse reaction nj1 19:25 Drug: Ketorolac IVP 10 mg IVP once Route: IVP; Site: right antecubital; nj1 20:06 Follow up: Response: Pain is decreased nj1 Medication: 20:44 VIS not applicable for this client. nj1 Outcome: 20:20 Discharge ordered by . ms3 20:44 Discharged to home ambulatory, with family, nj1 20:44 Condition: stable 20:44 Discharge instructions given to patient, Instructed on discharge instructions, follow up and referral plans. medication usage, Demonstrated understanding of instructions, follow-up care, medications, Prescriptions given X 3, 20:44 Patient left the ED. nj1 Signatures: Dispatcher [employer] EDMS Wisam Quintanilla DO DO ms3 Kristin Carranza RN RN nj1 Fariba Dickinson RN RN [place] Yesenia Bautista 5 Ren Ramos 4
--- NOTE | 2023-03-07 20:21 | EDPHYS ---
Physician Documentation [facility] Name: Shaan Woods Age: 37 yrs Sex: Female : 1985 Arrival Date: 03/07/2023 Time: 17:35 Bed 12 Private MD: ED Physician Wisam Quintanilla HPI: 03/07 18:15 This 37 yrs old Female presents to ER via Ambulatory with complaints of Neck Pain, ms3 <24hrs Old. 18:15 37-year-old female with past medical history of anxiety, kidney stones presents to the [facility] emergency department for right-sided neck pain that is been ongoing for 2 days. Patient rates the pain an 8/10. Patient states the pain radiates into her right shoulder. Patient has applied a heating pad with some relief. Patient notes she has taken Tylenol and ibuprofen as well. Patient denies any alleviating or inciting factors. Patient denies dizziness, vision changes, headache, numbness, weakness, fevers, chills. Historical: - Allergies: 18:05 Bactrim; tl4 18:05 hydromorphone HCl; tl4 18:05 PENICILLINS; tl4 - PMHx: 18:05 Anxiety; Kidney stone; tl4 - PSHx: 18:05 fistula repair; tl4 - Immunization history:: Adult Immunizations unknown. - Social history:: Smoking status: Patient reports the use of cigarette tobacco products, smokes one-half pack cigarettes per day. ROS: 18:15 Constitutional: Negative for fever, and chills. ms3 18:15 Abdomen/GI: Negative for abdominal pain, nausea, vomiting, diarrhea, and constipation, MS/Extremity: Negative for injury and deformity, Skin: Negative for injury, rash, and discoloration, 18:15 Neck: Positive for pain with movement, 18:15 All other systems are negative, Exam: 18:15 Constitutional: This is a well developed, well nourished patient who is awake, alert, ms3 and in no acute distress. Head/Face: Normocephalic, atraumatic. Chest/axilla: Normal chest wall appearance and motion. Nontender with no deformity. Cardiovascular: Regular rate and rhythm with a normal S1 and S2. No gallops, murmurs, or rubs. Normal PMI, no JVD. No pulse deficits. Respiratory: Lungs have equal breath sounds bilaterally, clear to auscultation and percussion. No rales, rhonchi or wheezes noted. No increased work of breathing, no retractions or nasal flaring. Abdomen/GI: Soft, non-tender, with normal bowel sounds. No distension or tympany. No guarding or rebound. No evidence of tenderness throughout. 18:15 Skin: Warm, dry with normal turgor. Normal color with no rashes, no lesions, and no evidence of cellulitis. MS/ Extremity: Pulses equal, no cyanosis. Neurovascular intact. Full, normal range of motion. 18:15 Neck: External neck: Right lateral/anterior neck tender to palpation, Vital Signs: 18:03 BP 130 / 89; Pulse 114; Resp 18; Temp 98.3; Pulse Ox 100% on R/A; Weight 47.63 kg; tl4 Height 4 ft. 11 in. ; Pain 10/10; 20:06 BP 99 / 59; Pulse 85; Resp 16; Temp 98.8(TE); Pulse Ox 99% on R/A; Pain 5/10; nj1 20:43 BP 103 / 71; Pulse 89; Resp 16; Pulse Ox 100% ; nj1 18:03 Body Mass Index 21.21 (47.63 kg, 149.86 cm) tl4 18:03 Pain Scale: Adult tl4 20:06 Pain Scale: Adult nj1 MDM: 18:13 Patient medically screened. ms3 18:15 Differential diagnosis: Cervical Raiculopathy cervical strain, torticollis, Vertebral ms3 artery dissection. 20:21 Data reviewed: vital signs, nurses notes, lab test result(s), radiologic studies, and ms3 as a result, I will discharge patient. I considered the following discharge prescriptions or medication management in the emergency department Medications were administered in the Emergency Department. See MAR. Counseling: I had a detailed discussion with the patient and/or guardian regarding the historical points, exam findings, and any diagnostic results supporting the discharge/admit diagnosis, lab results, radiology results, the need for outpatient follow up, to return to the emergency department if symptoms worsen or persist or if there are any questions or concerns that arise at home. Response to treatment: the patient's symptoms have markedly improved after treatment, and as a result, I will discharge patient. Special discussion: I discussed with the patient/guardian in detail that at this point there is no indication for admission to the hospital. It is understood, however, that if the symptoms persist or worsen the patient needs to return immediately for re-evaluation. ED course: Discussed labs and imaging with patient. Patient to follow-up with Dr. Sterling in 2 to 3 days. Patient understands agrees with plan. All questions were answered. Return precautions discussed include worsening symptoms, or any other concerns. On reevaluation patient symptoms improved, patient is alert and orient x 4, no apparent distress, nontoxic-appearing, ambulatory emergency primary, speaking full sentences. 03/07 18:14 Order name: CBC with Diff; Complete Time: 19: ms3 03/07 18:14 Order name: BMP; Complete Time: 19: ms3 03/07 18:15 Order name: CT Neck Angio; Complete Time: 20: ms3 Administered Medications: 18:20 Drug: HYDROcodone-acetaminophen PO 5 mg-325 mg 1 tabs PO once Route: PO; nj1 19:20 Follow up: Response: No adverse reaction; Pain is unchanged, physician notified nj1 18:20 Drug: Diazepam PO 5 mg PO once Route: PO; nj1 19:20 Follow up: Response: No adverse reaction nj1 18:49 Drug: Ondansetron PO 4 mg PO once Route: PO; cm10 19:27 Follow up: Response: No adverse reaction nj1 19:25 Drug: Ketorolac IVP 10 mg IVP once Route: IVP; Site: right antecubital; nj1 20:06 Follow up: Response: Pain is decreased nj1 Disposition Summary: 03/07/23 20:20 Discharge Ordered Notes: Location: Home ms3 Condition: Stable ms3 Diagnosis - Neck pain ms3 - Acute gingivitis ms3 Followup: ms3 - With: Rhett Sterling DO - When: 2 - 3 days - Reason: Recheck today's complaints Discharge Instructions: - Discharge Summary Sheet ms3 - Musculoskeletal Pain ms3 Forms: - Medication Reconciliation Form ms3 - Thank You Letter ms3 - Antibiotic Education ms3 - Prescription Opioid Use ms3 - Patient Portal Instructions ms3 - Leadership Thank You Letter ms3 Prescriptions: - Clindamycin HCl 300 mg Oral capsule - take 1 capsule ORAL route every 8 hours for 10 days; 30 capsule; Refills: 0, ms3 Product Selection Permitted - Ibuprofen 600 mg Oral Tablet - take 1 tablet ORAL route every 6 hours As needed take with food; 30 tablet; ms3 Refills: 0, Product Selection Permitted - Cyclobenzaprine 10 mg Oral Tablet - take 1 tablet ORAL route every 8 hours As needed; 30 tablet; Refills: 0, ms3 Product Selection Permitted Signatures: Dispatcher [employer] EDMS Wisam Quintanilla DO DO ms3 Kristin Carranza RN RN nj1 Fariba Dickinsno RN RN cm10 Ren Ramos 4 Corrections: (The following items were deleted from the chart) 19:24 18:14 Soft Tissue Neck W/Contr+CT.RAD.BRZ ordered. EDMS EDMS
[2023-03-08 00:20] VITALS: BP 103/71; TEMP 98.8; O2SAT 100
== END ==
LOC: ER 17:35
DX: M54.2 Cervicalgia (principal); K05.00 Acute gingivitis, plaque induced; F17.210 Nicotine dependence, cigarettes, uncomplicated; Z88.0 Allergy status to penicillin; Z88.1 Allergy status to other antibiotic agents; Z88.5 Allergy status to narcotic agent
CPT/HCPCS: 36415; 70498; 80048; 85025; Q0162; Q9967

== ENCOUNTER → 2023-03-27 | Emergency (ER) | payer SELFPAY ==
[~2023-03-27] MED LIST changes: +ACETAMINOPHEN 500 MG TAB ONE; -DIAZEPAM 5 MG TABLET ONE; +DICYCLOMINE HCL 10 MG CAP ONE; +FAMOTIDINE 20 MG/2 ML VIAL IV ONE; -HYDROCODONE/APAP 5/325 MG TAB ONE; +MORPHINE 4 MG/ML SYR ONE; +NA CHLORIDE 0.9% 1,000 ML ONE; -ONDANSETRON 4 MG (ODT) TAB ONE; +ONDANSETRON 4 MG/2 ML VIAL ONE; +PROMETHAZINE 25 MG TABLET ONE
--- OUTSIDE RECORDS SUMMARY | 2023-03-27 20:40 | XMS REPORT | Continuity of Care Document ---
Author Name Unknown Address [address] [place] [address] [place] [address] thconnect Address [address] [facility] [address] [place] [address] Care Team Providers Care Clinical Social Work Therapist Name Role Phone Jo-Ann Liao MD Attending Clinician [phone] Allergies, Adverse Reactions, Alerts Allergy Name Allergy Type Status Severity Reaction(s) Onset Date Inactive Date Treating Clinician Comments Source Penicill ins Propensi ty to adverse reaction s Active Hives 06-15 00:00: 00 [facility] Hydromor phone (Bulk) Propensi ty to adverse reaction s Active Hallucinatio ns 06-15 00:00: 00 [facility] Social History Social Habit Start Date Stop Date Quantity Comments Source Sex Assigned At [facility] Smoking Status Start Date Stop Date Source Unknown if ever smoked [facility] Medications Ordered Medication Name Filled Medication Name Start Date Stop Date Current Medication? Ordering Clinician Indication Dosage Frequency Signature (SIG) Comments Components Source No known medications No Un levar [facility] Vital Signs Vital Name Observation Time Observation Value Comments S ource Diastolic blood pressure 2018-09-29 13:24:00 96 mm[Hg] [facility] Heart rate 2018-09-29 13:24:00 130 /min [facility] Respiratory rate 2018-09-29 13:24:00 22 /min [facility] Oxygen saturation in Arterial blood by Pulse oximetry 2018-09-29 13:24:00 100 /min [facility] Systolic blood pressure 2018-09-29 13:24:00 146 mm[Hg] [facility] Body weight 2018-09-29 13:21:00 43.545 kg [facility] BMI 2018-09-29 13:21:00 19.39 kg/m2 [facility] Procedures Procedure Date / Time Performed Performing Clinicia n Source NOTICE OF PRIVACY PRACTICES 2018-09-29 13:16:04 Doctor Unassigned, [place] [facility] Encounters Start Date/Time End Date/Time Encounter Type Admission Type Attending [facility] Care Facility Care Department Encounter ID Source 2018-09-29 08:19:26 2018-09-29 09:00:00 Emergency Jo-Ann Liao [facility] [id number] [facility]
[2023-03-27 21:53] LABS: Specific Gravity 1.011 (1.005-1.030)
[2023-03-27 21:55] LABS: Specific Gravity 1.011 (1.005-1.030); Urine Bacteria <20 /HPF (<20); Urine Bilirubin NEGATIVE (Negative); Urine Blood Negative (Negative); Urine Clarity Extremely Turbid (Clear); Urine Color Light-Yellow (Yellow); Urine Glucose NEGATIVE (Negative); Urine Mucus Slight /HPF (None Seen); Urine Protein NEGATIVE (Negative); Urine Urobilinogen Normal (Normal)
[2023-03-27 22:08] LABS: Absolute Lymphocytes (CBC) 2.2 K/uL (0.7-4.9); Hematocrit 35.1 % (36.0-45.0); Lymphocytes % 23.6 % (15.3-44.8); MCV 89.7 fL (80-100); Platelets 340 thou/uL (152-406); RBC Red Blood Cell Count 3.91 M/uL (3.86-4.86)
[2023-03-27 22:19] LABS: Albumin 3.3 g/dL (3.4-5.0); Bilirubin Total 0.2 mg/dL (0.2-1.0); Potassium 3.7 mEq/L (3.5-5.1); Protein, Total 6.5 g/dL (6.4-8.2)
--- NOTE | 2023-03-27 22:40 | RAD REPORT ---
EXAM DESCRIPTION: CTAbdomen Pelvis W Contrast - 03/27/2023 10:30 pm CLINICAL HISTORY: ABD PAIN COMPARISON: CT ABD PELVIS W CONTRAST dated 06/23/2014; CT ABD PELVIS W CONTRAST dated 08/14/2013; CT AB D PELVIS W CONTRAST dated 06/14/2013; Stone Protocol dated 09/02/2020 TECHNIQUE: CT of the abdomen and pelvis was performed. All CT scans are performed using dose optimization technique as appropriate and may include automated exposure control or mA/KV adjustment according to patient size. FINDINGS: Lower chest: No acute abnormality. Liver: No acute abnormality or suspicious lesions. Biliary: No biliary ductal dilatation. Stomach: No significant focal abnormality. Duodenum: No significant focal abnormality. Pancreas: No significant abnormality. Spleen: No significant abnormality. Adrenal: No suspicious lesions. Kidney/ureter: No hydronephrosis. 5 mm stone in lower pole left kidney. Retroperitoneum: No retroperitoneal adenopathy. Vascular: No aneurysm. Bowel: No appendicitis. No bowel obstruction. Peritoneum: No ascites or free air. Bladder: Grossly unremarkable. Reproductive: Bilateral ovarian cysts, none measuring over 20 millimeters 4 requiring follow-up. Bones: No acute fracture. Other: n/a IMPRESSION: No acute intra-abdominal or pelvic finding.
--- NOTE | 2023-03-27 23:03 | ER ---
Nurse's Notes [facility] Name: Shaan Woods Age: 37 yrs Sex: Female : 1985 Arrival Date: 03/27/2023 Time: 20:38 Bed 13 Private MD: Diagnosis: Epigastric pain;Acute gastritis Presentation: 03/27 20:46 Chief complaint: Patient states: Pt c/o progressively worsening epigastric abdominal tl4 pain, pressure, bloating, and nausea since last night. Pt states her stomach feels like it is "burning". Pt denies any history of similar sxs. Coronavirus screen: At this time, the client does not indicate any symptoms associated with coronavirus-19. Ebola Screen: No symptoms or risks identified at this time. Initial Sepsis Screen: Does the patient meet any 2 criteria? No. Patient's initial sepsis screen is negative. Does the patient have a suspected source of infection? No. Patient's initial sepsis screen is negative. Risk Assessment: Do you want to hurt yourself or someone else? Patient reports no desire to harm self or others. Onset of symptoms was March 26, 2023. 20:46 Method Of Arrival: Ambulatory tl4 20:46 Acuity: HASEEB 3 tl4 Triage Assessment: 20:51 General: Appears uncomfortable, Behavior is cooperative. Pain: Complains of pain in tl4 back and abdomen Pain does not radiate. Quality of pain is described as burning, sharp. EENT: No deficits noted. No signs and/or symptoms were reported regarding the EENT system. Neuro: No deficits noted. Cardiovascular: No deficits noted. Respiratory: No deficits noted. GI: Reports upper abdominal pain, bloating, nausea. : No deficits noted. No signs and/or symptoms were reported regarding the genitourinary system. Derm: No deficits noted. No signs and/or symptoms reported regarding the dermatologic system. Historical: - Allergies: 20:50 Bactrim; tl4 20:50 hydromorphone HCl; tl4 20:50 PENICILLINS; tl4 - Home Meds: 20:50 None [Active]; tl4 - PMHx: 20:50 Kidney stone; Anxiety; tl4 - PSHx: 20:51 fistula repair; tl4 - Immunization history:: Adult Immunizations unknown. - Social history:: Smoking status: Patient reports the use of cigarette tobacco products, smokes one-half pack cigarettes per day. - Family history:: not pertinent. Screenin:37 [facility] ED Fall Risk Assessment (Adult) History of falling in the last 3 months, jb4 including since admission No falls in past 3 months (0 pts) Confusion or Disorientation No (0 pts). Abuse screen: Denies threats or abuse. Nutritional screening: No deficits noted. Tuberculosis screening: No symptoms or risk factors identified. Assessment: 21:00 General: Appears in no apparent distress. Behavior is calm, cooperative, appropriate pf1 for age, quiet. 21:00 Pain: Complains of pain in abdomen. pf1 21:00 Neuro: No deficits noted. Level of Consciousness is awake, alert, obeys commands, pf1 Oriented to person, place, time, situation. Cardiovascular: No deficits noted. Capillary refill < 3 seconds Patient's skin is warm and dry. Respiratory: No deficits noted. Airway is patent Respiratory effort is even, unlabored, Respiratory pattern is regular, symmetrical. GI: Bowel sounds present X 4 quads. Abd is soft X 4 quads Reports upper abdominal pain, epigastric pain, nausea. : No deficits noted. No signs and/or symptoms were reported regarding the genitourinary system. EENT: No deficits noted. No signs and/or symptoms were reported regarding the EENT system. Derm: No deficits noted. No signs and/or symptoms reported regarding the dermatologic system. 22:00 Reassessment: Patient appears in no apparent distress at this time. Patient and/or pf1 family updated on plan of care and expected duration. Pain level reassessed. Patient is alert, oriented x 3, equal unlabored respirations, skin warm/dry/pink. Patient states symptoms have improved. 23:00 Reassessment: Patient appears in no apparent distress at this time. Patient and/or pf1 family updated on plan of care and expected duration. Pain level reassessed. Patient is alert, oriented x 3, equal unlabored respirations, skin warm/dry/pink. Patient states feeling better. Patient states symptoms have improved. Vital Signs: 20:46 BP 124 / 97; Pulse 97; Resp 16; Temp 98.3(TE); Pulse Ox 100% on R/A; Weight 47.63 kg; tl4 Height 4 ft. 11 in. ; Pain 8/10; 21:30 BP 122 / 89; Pulse 92; Resp 16; Pulse Ox 100% ; pf1 22:30 BP 118 / 79; Pulse 85; Resp 18; Pulse Ox 99% on R/A; pf1 23:30 BP 113 / 69; Pulse 90; Resp 16; Pulse Ox 99% on R/A; Pain 4/10; pf1 20:46 Body Mass Index 21.21 (47.63 kg, 149.86 cm) tl4 20:46 Pain Scale: Adult tl4 23:30 Pain Scale: Adult pf1 ED Course: 20:39 Patient arrived in ED. jj6 20:39 Adrián Das MD is Attending Physician. sp4 20:50 Triage completed. tl4 20:52 Arm band placed on right wrist. tl4 21:38 Inserted saline lock: 22 gauge in right forearm, using aseptic technique. Blood pf1 collected. 21:49 CBC with Diff Sent. pf1 21:49 CMP Sent. pf1 21:49 Lipase Sent. pf1 21:49 Test, Urine Sent. pf1 21:49 Urinalysis w/ reflexes Sent. pf1 21:49 CRP Sent. pf1 21:49 No provider procedures requiring assistance completed. pf1 22:31 CT Abd/Pelvis - IV Contrast Only In Process Unspecified. EDMS 23:02 Adrián Das MD is Referral Physician. sp4 23:37 Patient has correct armband on for positive identification. Bed in low position. Call jb4 light in reach. Side rails up X 1. 23:37 Provided Education on: prescriptions. pf1 23:37 IV discontinued, intact, bleeding controlled, No redness/swelling at site. Pressure jb4 dressing applied. Administered Medications: 21:57 Drug: NS 0.9% IV 1000 ml IV at 1 bolus Per protocol; 1000 mL bolus Route: IV; Rate: 1 tl4 bolus; Site: right hand; Delivery: Primary tubing; 22:50 Follow up: Response: No adverse reaction; Marked relief of symptoms; IV Status: pf1 Completed infusion; IV Intake: 1000ml 21:58 Drug: morphine IVP or IV 4 mg IVP once over 4 mins Route: IVP; Infused Over: 4 mins; tl4 Site: right hand; 22:50 Follow up: Response: No adverse reaction; Marked relief of symptoms; Pain is decreased; pf1 RASS: Alert and Calm (0) 21:58 Drug: Ketorolac IVP 30 mg IVP once Route: IVP; Site: right hand; tl4 22:50 Follow up: Response: No adverse reaction; Marked relief of symptoms; Pain is decreased pf1 21:58 Drug: Ondansetron IVP 4 mg IVP once; over 2 minutes Route: IVP; Infused Over: 2 mins; tl4 Site: right hand; 22:50 Follow up: Response: No adverse reaction; Marked relief of symptoms pf1 21:58 Drug: Famotidine IVP 20 mg IVP once; dilute with 10 mL 0.9% NaCl; give over 2 minutes tl4 Route: IVP; Infused Over: 2 mins; Site: right hand; 22:50 Follow up: Response: No adverse reaction; Marked relief of symptoms; Pain is decreased pf1 23:30 Drug: Promethazine PO 25 mg PO once Route: PO; jb4 23:37 Follow up: Response: No adverse reaction; Marked relief of symptoms; Nausea is decreasedpf1 23:30 Drug: Dicyclomine PO 20 mg PO once Route: PO; jb4 23:37 Follow up: Response: No adverse reaction; Marked relief of symptoms pf1 23:30 Drug: Acetaminophen PO 1000 mg PO once Route: PO; jb4 23:37 Follow up: Response: No adverse reaction; Marked relief of symptoms pf1 Medication: 23:37 VIS not applicable for this client. pf1 Intake: 22:50 IV: 1000ml; Total: 1000ml. pf1 Outcome: 23:03 Discharge ordered by . sp4 23:37 Discharged to home ambulatory, jb4 23:37 Condition: stable 23:37 Discharge instructions given to patient, Instructed on discharge instructions, follow up and referral plans. medication usage, Demonstrated understanding of instructions, follow-up care, medications, Prescriptions given X 3, 23:37 Patient left the ED. jb4 Signatures: Dispatcher [employer] EDMS Vipin Chauhan RN RN jb4 Gali Bledsoe Pamala, RN RN pf1 Adrián Das MD MD sp4 Ren Ramos RN RN tl4 Corrections: (The following items were deleted from the chart) 03/28 07:13 03/27 21:00 General: Appears in no apparent distress. pf1 pf1
--- NOTE | 2023-03-27 23:03 | EDPHYS ---
Physician Documentation [facility] Name: Shaan Woods Age: 37 yrs Sex: Female : 1985 Arrival Date: 03/27/2023 Time: 20:38 Bed 13 Private MD: ED Physician Adrián Das HPI: 03/27 20:39 This 37 yrs old Female presents to ER via Unassigned with complaints of sp4 Abdominal Pain. 22:57 Patient is a very pleasant 37-year-old female who presents with acute onset of sp4 epigastric upper abdominal pain associated with abdominal reported swelling and nausea. Patient states pain is independent of food consumption. This is never happened before. No prior abdominal surgery. Patient is a smoker 1-1/2 packs/day. Denied alcohol denied any medicines daily. Patient is allergic to Dilaudid and penicillin. . Historical: - Allergies: 20:50 Bactrim; tl4 20:50 hydromorphone HCl; tl4 20:50 PENICILLINS; tl4 - Home Meds: 20:50 None [Active]; tl4 - PMHx: 20:50 Kidney stone; Anxiety; tl4 - PSHx: 20:51 fistula repair; tl4 - Immunization history:: Adult Immunizations unknown. - Social history:: Smoking status: Patient reports the use of cigarette tobacco products, smokes one-half pack cigarettes per day. - Family history:: not pertinent. ROS: 22:57 Constitutional: Negative for fever, chills, and weight loss, positive for upper sp4 abdominal pain and nausea 22:57 All other systems are negative, Exam: 22:57 Constitutional: This is a well developed, well nourished patient who is awake, alert, sp4 and in no acute distress. Head/Face: Normocephalic, atraumatic. Eyes: Pupils equal round and reactive to light, extra-ocular motions intact. Lids and lashes normal. Conjunctiva and sclera are not injected. Cornea within normal limits. Periorbital areas with no swelling, redness, or edema. ENT: Nares patent. No nasal discharge, no septal abnormalities noted. Tympanic membranes are normal and external auditory canals are clear. Oropharynx with no redness, swelling, or masses, exudates, or evidence of obstruction, uvula midline. Mucous membranes moist. Neck: Trachea midline, no thyromegaly or masses palpated, and no cervical lymphadenopathy. Supple, full range of motion without nuchal rigidity, or vertebral point tenderness. Chest/axilla: Normal chest wall appearance and motion. Nontender with no deformity. No lesions are appreciated. Cardiovascular: Regular rate and rhythm with a normal S1 and S2. No gallops, murmurs, or rubs. Normal PMI, no JVD. No pulse deficits. Respiratory: Lungs have equal breath sounds bilaterally, clear to auscultation and percussion. No rales, rhonchi or wheezes noted. No increased work of breathing, no retractions or nasal flaring. Abdomen/GI: Soft, with normal bowel sounds. No distension or tympany. No guarding or rebound. Positive for upper abdominal tenderness Back: No spinal tenderness. No costovertebral tenderness. Skin: Warm, dry with normal turgor. Normal color with no rashes, no lesions, and no evidence of cellulitis. MS/ Extremity: Pulses equal, no cyanosis. Neurovascular intact. Full, normal range of motion. Neuro: Awake and alert, GCS 15, oriented to person, place, time, and situation. Cranial nerves II-XII grossly intact. Motor strength 5/5 in all extremities. Sensory grossly intact. Psych: Awake, alert, with orientation to person, place and time. Behavior, mood, and affect are within normal limits Vital Signs: 20:46 BP 124 / 97; Pulse 97; Resp 16; Temp 98.3(TE); Pulse Ox 100% on R/A; Weight 47.63 kg; tl4 Height 4 ft. 11 in. ; Pain 8/10; 21:30 BP 122 / 89; Pulse 92; Resp 16; Pulse Ox 100% ; pf1 22:30 BP 118 / 79; Pulse 85; Resp 18; Pulse Ox 99% on R/A; pf1 23:30 BP 113 / 69; Pulse 90; Resp 16; Pulse Ox 99% on R/A; Pain 4/10; pf1 20:46 Body Mass Index 21.21 (47.63 kg, 149.86 cm) tl4 20:46 Pain Scale: Adult tl4 23:30 Pain Scale: Adult pf1 MDM: 20:40 Patient medically screened. sp4 22:46 ED course: EXAM DESCRIPTION: CTAbdomen Pelvis W Contrast - 03/27/2023 10:30 pm CLINICAL sp4 HISTORY: ABD PAIN COMPARISON: CTABD PELVIS W CONTRAST dated 06/23/2014; CTABD PELVIS W CONTRAST dated 08/14/2013; CT ABD PELVIS W CONTRAST dated 06/14/2013; Stone Protocol dated 09/02/2020 TECHNIQUE: CT of the abdomen and pelvis was performed. All CT scans are performed using dose optimization technique as appropriate and may include automated exposure control or mA/KV adjustment according to patient size. FINDINGS: Lower chest: No acute abnormality. Liver: No acute abnormality or suspicious lesions. Biliary: No biliary ductal dilatation. Stomach: No significant focal abnormality. Duodenum: No significant focal abnormality. Pancreas: No significant abnormality. Spleen: No significant abnormality. Adrenal: No suspicious lesions. Kidney/ureter: No hydronephrosis. 5 mm stone in lower pole left kidney. Retroperitoneum: No retroperitoneal adenopathy. Vascular: No aneurysm. Bowel: No appendicitis. No bowel obstruction. Peritoneum: No ascites or free air. Bladder: Grossly unremarkable. Reproductive: Bilateral ovarian cysts, none measuring over 20 millimeters 4 requiring follow-up. Bones: No acute fracture. Other: n/a IMPRESSION: No acute intra-abdominal or pelvic finding. 22:47 ED course: EXAM DESCRIPTION: CTAbdomen Pelvis W Contrast - 03/27/2023 10:30 pm CLINICAL sp4 HISTORY: ABD PAIN COMPARISON: CTABD PELVIS W CONTRAST dated 06/23/2014; CTABD PELVIS W CONTRAST dated 08/14/2013; CT ABD PELVIS W CONTRAST dated 06/14/2013; Stone Protocol dated 09/02/2020 TECHNIQUE: CT of the abdomen and pelvis was performed. All CT scans are performed using dose optimization technique as appropriate and may include automated exposure control or mA/KV adjustment according to patient size. FINDINGS: Lower chest: No acute abnormality. Liver: No acute abnormality or suspicious lesions. Biliary: No biliary ductal dilatation. Stomach: No significant focal abnormality. Duodenum: No significant focal abnormality. Pancreas: No significant abnormality. Spleen: No significant abnormality. Adrenal: No suspicious lesions. Kidney/ureter: No hydronephrosis. 5 mm stone in lower pole left kidney. Retroperitoneum: No retroperitoneal adenopathy. Vascular: No aneurysm. Bowel: No appendicitis. No bowel obstruction. Peritoneum: No ascites or free air. Bladder: Grossly unremarkable. Reproductive: Bilateral ovarian cysts, none measuring over 20 millimeters 4 requiring follow-up. Bones: No acute fracture. Other: n/a IMPRESSION: No acute intra-abdominal or pelvic finding. 22:57 Differential Diagnosis altered mental status, sepsis, flu. Data reviewed: vital signs, sp4 nurses notes, lab test result(s), radiologic studies, CT scan. ED course: Patient is no acute abdominal emergencies based on CT findings. Stable for discharge home.. 23:02 Consideration of Admission/Observation Escalation of care including sp4 admission/observation considered. 03/27 20:40 Order name: CBC with Diff; Complete Time: 22:46 4 03/27 20:40 Order name: CMP; Complete Time: 22:46 [facility] 03/27 20:40 Order name: Lipase; Complete Time: 22:46 [facility] 03/27 20:40 Order name: Test, Urine; Complete Time: 22:46 [facility] 03/27 20:40 Order name: Urinalysis w/ reflexes; Complete Time: 22:46 [facility] 03/27 21:03 Order name: CRP; Complete Time: 22:46 [facility] 03/27 21:02 Order name: CT Abd/Pelvis - IV Contrast Only; Complete Time: 22:46 [facility] 03/27 20:40 Order name: IV Saline Lock; Complete Time: 21:49 [facility] 03/27 20:40 Order name: Labs collected and sent; Complete Time: 21:49 sp4 Administered Medications: 21:57 Drug: NS 0.9% IV 1000 ml IV at 1 bolus Per protocol; 1000 mL bolus Route: IV; Rate: 1 tl4 bolus; Site: right hand; Delivery: Primary tubing; 22:50 Follow up: Response: No adverse reaction; Marked relief of symptoms; IV Status: pf1 Completed infusion; IV Intake: 1000ml 21:58 Drug: morphine IVP or IV 4 mg IVP once over 4 mins Route: IVP; Infused Over: 4 mins; tl4 Site: right hand; 22:50 Follow up: Response: No adverse reaction; Marked relief of symptoms; Pain is decreased; pf1 RASS: Alert and Calm (0) 21:58 Drug: Ketorolac IVP 30 mg IVP once Route: IVP; Site: right hand; tl4 22:50 Follow up: Response: No adverse reaction; Marked relief of symptoms; Pain is decreased pf1 21:58 Drug: Ondansetron IVP 4 mg IVP once; over 2 minutes Route: IVP; Infused Over: 2 mins; tl4 Site: right hand; 22:50 Follow up: Response: No adverse reaction; Marked relief of symptoms pf1 21:58 Drug: Famotidine IVP 20 mg IVP once; dilute with 10 mL 0.9% NaCl; give over 2 minutes tl4 Route: IVP; Infused Over: 2 mins; Site: right hand; 22:50 Follow up: Response: No adverse reaction; Marked relief of symptoms; Pain is decreased pf1 23:30 Drug: Promethazine PO 25 mg PO once Route: PO; jb4 23:37 Follow up: Response: No adverse reaction; Marked relief of symptoms; Nausea is decreasedpf1 23:30 Drug: Dicyclomine PO 20 mg PO once Route: PO; jb4 23:37 Follow up: Response: No adverse reaction; Marked relief of symptoms pf1 23:30 Drug: Acetaminophen PO 1000 mg PO once Route: PO; jb4 23:37 Follow up: Response: No adverse reaction; Marked relief of symptoms pf1 Disposition Summary: 03/27/23 23:03 Discharge Ordered Notes: Location: Home sp4 Problem: new sp4 Symptoms: have improved sp4 Condition: Fair sp4 Diagnosis - Epigastric pain sp4 - Acute gastritis sp4 Followup: sp4 - With: Adrián Das MD - When: 10 - 14 days - Reason: Recheck today's complaints Discharge Instructions: - Discharge Summary Sheet sp4 - Gastritis, Adult, [id number] sp4 Forms: - Patient Portal Instructions sp4 Prescriptions: - Pepcid 20 mg Oral tablet - take 1 tablet ORAL route every 12 hours for 15 days; 30 tablet; Refills: 0, sp4 Product Selection Permitted - promethazine 25 mg Oral tablet - take 1 tablet ORAL route every 6 hours As needed PRN nausea; 30 tablet; sp4 Refills: 0, Product Selection Permitted - dicyclomine 20 mg Oral tablet - take 1 tablet ORAL route every 6 hours PRN abdominal pain; 30 tablet; Refills: sp4 0, Product Selection Permitted Signatures: Dis[facility] Vipin Arciniega RN RN jb4 Adrián Das MD MD sp4 Ren Ramos RN RN tl4 [place], Radha RN pf1
[2023-03-28 00:22] VITALS: BP 124/97; TEMP 98.3; O2SAT 100
== END ==
LOC: ER 20:38
DX: K29.00 Acute gastritis without bleeding (principal)
CPT/HCPCS: 36415; 74177; 80053; 81001; 81025; 83690; 85025; 86140; 96361; 96374; 96375; 99284; J2405; J7030; Q0169; Q9967